=== PATIENT | female | born 1960 | race Caucasian/White ===

== ENCOUNTER 2020-09-02 11:21 | Outpatient (REF) | payer OTHER, SELFPAY ==
[2020-09-06 22:27] LABS: HPV mRNA E6/E7 rflx Not Detected (Not Detected)
== END 2020-09-02 11:22 | disposition home or self-care (01) ==
LOC: HO.LNP 11:21
PROVIDERS: Visit Provider Internal Medicine
DX: Z12.4 Encounter for screening for malignant neoplasm of cervix (principal); Z11.51 Encounter for screening for human papillomavirus (HPV)
CPT/HCPCS: 87624; 88142

== ENCOUNTER 2020-09-10 06:43 | Outpatient (REF) | payer OTHER, SELFPAY ==
[2020-09-10 11:08] LABS: MANUAL DIFF FLAG NO
[2020-09-10 11:12] LABS: Basophils Percent Auto 0.4 % (0-2); Eosinophils Percent Auto 0.4 % (0-4); Hematocrit 42.9 % (37-47); Hemoglobin 14.5 g/dl (12.0-16.0); Imm Gran Abs Auto 0.03 X10*3/uL (0.00-0.03); Imm Gran Pct Auto 0.4 % (0.0-0.4); Lymphocytes Absolute Auto 1.8 X10*3/uL (1.2-4.9); Lymphocytes Percent Auto 23.9 % (20-40); Mean Corpuscular HGB Conc 33.8 g/dl (31.0-35.0); Mean Corpuscular Hemoglobin 31.5 pg (27.0-33.0); Mean Corpuscular Volume 93.3 fL (80-98); Mean Platelet Volume 11.4 fL (9.4-12.3); Monocytes Absolute Auto 0.5 X10*3/uL (0.1-1.2); Monocytes Percent Auto 6.5 % (2-11); Neutrophils Absolute Auto 5.1 X10*3/uL (2.0-8.3); Neutrophils Percent Auto 68.4 % (45-73); Platelet Count 246 X10*3/uL (160-400); Red Cell Distribution Width 12.5 % (11.0-16.0); White Blood Count 7.5 X10*3/uL (4.8-10.8)
[2020-09-10 11:36] LABS: Alanine Aminotransferase 13 U/L (0-31); Anion Gap 15 (12-20); Aspartate Amino Transferase 16 U/L (5-31); Blood Urea Nitrogen 16 mg/dL (9-16); Calcium 9.3 mg/dL (8.4-10.2); Carbon Dioxide 24 mmol/L (22-29); Chloride 107 mmol/L (96-108); Cholesterol 185 mg/dL; Estimated Glomerular Filt Rate > 60; Glucose Fasting 90 mg/dL (60-99); HDL Cholesterol 38 mg/dL; LDL Cholesterol Calculated 123 mg/dl; Potassium 4.7 mmol/L (3.3-5.1); Sodium 141 mmol/L (135-145); Triglycerides 123 mg/dL
[2020-09-10 11:56] LABS: Vitamin D 25-OH Total 9.3 ng/mL (>30)
== END 2020-09-10 06:44 | disposition home or self-care (01) ==
LOC: HO.HMGCLDS 06:43
PROVIDERS: PCP Internal Medicine; Visit Provider Internal Medicine
DX: Z00.00 Encounter for general adult medical examination without abnormal findings (principal); E66.9 Obesity, unspecified; I10 Essential (primary) hypertension; Z78.0 Asymptomatic menopausal state
CPT/HCPCS: 36415; 80048; 80061; 82306; 84450; 84460; 85025

== ENCOUNTER 2020-10-27 07:18 | Outpatient (REF) | payer OTHER, SELFPAY ==
--- NOTE | ~2020-10-27 | MM_ITS ---
EXAMINATION: MM SCREENING DIGITAL BREAST TOMOSYNTHESIS, BILATERAL CLINICAL INFORMATION: Screening. Asymptomatic. The lifetime risk of breast cancer based on the Tyrer-Cuzick Model is 10%. COMPARISON: Mammography: 06/20/2017, 05/02/2009 (baseline) TECHNIQUE: Digital breast tomosynthesis is performed in both the craniocaudal and mediolateral oblique views along with computer-aided detection (CAD). Synthesized 2D images are generated from the tomosynthesis. FINDINGS: There are scattered areas of fibroglandular density (ACR BI-RADS breast composition Category b). There are no significant masses, abnormal calcifications, or other abnormalities. Parenchymal pattern is similar to prior studies. The axilla and skin contours are unremarkable. MM/MM tomosynthesis screening BI IMPRESSION: No mammographic evidence of malignancy. ASSESSMENT: BI-RADS 1: Negative RECOMMENDATION: Routine annual mammography screening. This patient's information was entered into a reminder system with a target due date for their next mammogram.
== END 2020-10-27 07:19 | disposition home or self-care (01) ==
LOC: HO.MAMMO 07:18
PROVIDERS: PCP Internal Medicine; Visit Provider Internal Medicine
DX: Z12.31 Encounter for screening mammogram for malignant neoplasm of breast (principal)
CPT/HCPCS: 77063; 77067

== ENCOUNTER 2021-09-04 09:49 | Outpatient (REF) | payer OTHER, SELFPAY ==
--- NOTE | ~2021-09-04 | XR_ITS ---
EXAMINATION: XR KNEE, RIGHT CLINICAL INFORMATION: Pain. COMPARISON: None TECHNIQUE: Four views of the right knee. FINDINGS: No acute fracture or subluxation. Mild to moderate tricompartmental degenerative osteoarthritis with joint space narrowing, subcortical sclerosis and osteophytes. No erosions or chondrocalcinosis. No joint effusion. XR/XR knee RT 3V IMPRESSION: No acute fracture or malalignment. Mild to moderate tricompartmental degenerative osteoarthritis.
--- NOTE | ~2021-09-04 | XR_ITS ---
EXAMINATION: XR HIP, RIGHT CLINICAL INFORMATION: Pain. COMPARISON: None TECHNIQUE: Two views of the right hip. FINDINGS: No acute fracture or subluxation. Severe degenerative changes of the right hip with preferential superolateral joint space narrowing, subcortical sclerosis and osteophytes. Degenerative bony productive changes are also identified in the anterosuperior iliac crest and greater trochanter. No discrete soft tissue abnormality. XR/XR hip RT min 2V IMPRESSION: No acute fracture or subluxation. Severe degenerative osteoarthritis of the right hip.
[2021-09-08 09:07] LABS: HPV mRNA E6/E7 rflx Not Detected (Not Detected)
== END 2021-09-04 09:50 | disposition home or self-care (01) ==
LOC: HO.HMGCX 09:49
PROVIDERS: PCP Internal Medicine; Visit Provider Internal Medicine
DX: Z12.4 Encounter for screening for malignant neoplasm of cervix (principal); Z11.51 Encounter for screening for human papillomavirus (HPV); M25.551 Pain in right hip; M25.561 Pain in right knee; G89.29 Other chronic pain
CPT/HCPCS: 73502; 73562; 87624; 88142

== ENCOUNTER 2021-10-14 06:37 | Outpatient (REF) | payer OTHER, SELFPAY ==
[2021-10-14 12:11] LABS: Alanine Aminotransferase 15 U/L (0-31); Anion Gap 13 (12-20); Aspartate Amino Transferase 16 U/L (5-31); Blood Urea Nitrogen 12 mg/dL (9-16); Calcium 9.1 mg/dL (8.4-10.2); Carbon Dioxide 27 mmol/L (22-29); Chloride 106 mmol/L (96-108); Cholesterol 175 mg/dL; Estimated Glomerular Filt Rate > 60; Glucose Fasting 103 mg/dL (60-99); HDL Cholesterol 35 mg/dL; LDL Cholesterol Calculated 113 mg/dl; Potassium 4.9 mmol/L (3.3-5.1); Sodium 141 mmol/L (135-145); Triglycerides 139 mg/dL
[2021-10-14 12:34] LABS: Vitamin D 25-OH Total 25.8 ng/mL (>30)
== END 2021-10-14 06:38 | disposition home or self-care (01) ==
LOC: HO.HMGCLDS 06:37
PROVIDERS: PCP Internal Medicine; Visit Provider Internal Medicine
DX: Z00.01 Encounter for general adult medical examination with abnormal findings (principal); E66.9 Obesity, unspecified; N95.9 Unspecified menopausal and perimenopausal disorder; E55.9 Vitamin D deficiency, unspecified
CPT/HCPCS: 36415; 80048; 80061; 82306; 84450; 84460

== ENCOUNTER 2021-10-28 07:31 | Outpatient (REF) | payer OTHER, SELFPAY ==
--- NOTE | ~2021-10-28 | MM_ITS ---
EXAMINATION: MM SCREENING DIGITAL BREAST TOMOSYNTHESIS, BILATERAL CLINICAL INFORMATION: Screening. Asymptomatic. The lifetime risk of breast cancer based on the Tyrer-Cuzick Model is 10%. COMPARISON: Mammography: 10/27/2020, 06/20/2017 TECHNIQUE: Digital breast tomosynthesis is performed in both the craniocaudal and mediolateral oblique views along with computer-aided detection (CAD). Synthesized 2D images are generated from the tomosynthesis. FINDINGS: There are scattered areas of fibroglandular density (ACR BI-RADS breast composition Category b). There are no significant masses, abnormal calcifications, or other abnormalities. Parenchymal pattern is similar to prior studies. There is no developing density or architectural abnormality. The axilla and skin contours are unremarkable. No significant changes. MM/MM tomosynthesis screening BI IMPRESSION: No mammographic evidence of malignancy. ASSESSMENT: BI-RADS 1: Negative RECOMMENDATION: Routine annual mammography screening. This patient's information was entered into a reminder system with a target due date for their next mammogram.
== END 2021-10-28 07:32 | disposition home or self-care (01) ==
LOC: HO.MAMMO 07:31
PROVIDERS: PCP Internal Medicine; Visit Provider Internal Medicine
DX: Z12.31 Encounter for screening mammogram for malignant neoplasm of breast (principal)
CPT/HCPCS: 77063; 77067

== ENCOUNTER 2021-11-28 | Outpatient (REF) | payer OTHER, SELFPAY | END 2021-11-28 00:01 | disposition home or self-care (01) | LOC: HO.HOSX | PROVIDERS: Visit Provider Physician Assistant | DX: Z13.89 Encounter for screening for other disorder (principal) ==

== ENCOUNTER 2021-12-29 07:23 | Outpatient (REF) | payer OTHER, SELFPAY ==
--- NOTE | ~2021-12-29 | XR_ITS ---
EXAMINATION: XR PELVIS CLINICAL INFORMATION: Pain in hip. COMPARISON: None TECHNIQUE: AP view of the pelvis. FINDINGS: There is moderate loss of right hip joint space with moderate lateral acetabular spurring. Mild loss of left hip joint space is seen. No acute fracture, bony erosive changes or dislocation seen. SI joints are symmetrical and unremarkable. The soft tissues are normal. XR/XR pelvis 1-2V IMPRESSION: Moderate degenerative changes right hip joint with moderate lateral acetabular spurring. No visible acute fracture or dislocation seen.
== END 2021-12-29 07:24 | disposition home or self-care (01) ==
LOC: HO.HOSX 07:23
PROVIDERS: Visit Provider Physician Assistant
DX: M25.551 Pain in right hip (principal)
CPT/HCPCS: 72170

== ENCOUNTER 2022-02-20 06:02 | Outpatient (REF) | payer OTHER, SELFPAY ==
--- NOTE | ~2022-02-20 | FL_ITS ---
EXAMINATION: XR FLUOROSCOPY WITH IMAGES CLINICAL INFORMATION: Unilateral primary osteoarthritis right hip COMPARISON: None. TECHNIQUE: Fluoroscopy Supervised By: Ramona Santos. Fluoroscopy Time: 0.1 minutes. Cumulative Dose: 5.90 mGy. DAP: 1.60 Gycm2. Images: 2. FINDINGS: There is contrast opacifying the right hip joint space without periarticular spurring or bony erosive changes. FL/FL guidance in treatment room IMPRESSION: Fluoroscopy guidance provided to the referrer for pain management
== END 2022-02-20 06:03 | disposition home or self-care (01) ==
LOC: CF 06:02
PROVIDERS: Visit Provider Anesthesiology
DX: M16.11 Unilateral primary osteoarthritis, right hip (principal); G89.29 Other chronic pain
CPT/HCPCS: 20610; 77002; J3301

== ENCOUNTER → 2022-03-12 08:17 | Outpatient (BNVA) | payer OTHER, SELFPAY | PROVIDERS: PCP Internal Medicine; Visit Provider Orthopaedic Surgery | DX: Z13.89 Encounter for screening for other disorder (principal) ==

== ENCOUNTER 2022-03-27 14:34 | Outpatient (REF) | payer OTHER, SELFPAY ==
[2022-03-27 17:01] LABS: Alanine Aminotransferase 13 U/L (0-31); Albumin Level 3.9 g/dL (3.5-5.0); Alkaline Phosphatase 81 U/L (39-117); Aspartate Amino Transferase 15 U/L (5-31); Bilirubin Direct < 0.2 mg/dL (0.0-0.5); Bilirubin Total 0.4 mg/dL (0.0-1.0); Total Protein 5.9 g/dL (6.5-8.0)
== END 2022-03-27 14:35 | disposition home or self-care (01) ==
LOC: HO.HMGCLDS 14:34
PROVIDERS: PCP Internal Medicine; Visit Provider Podiatrist
DX: B35.1 Tinea unguium (principal)
CPT/HCPCS: 36415; 80076

== ENCOUNTER 2022-04-05 07:00 | Outpatient (RCR) | payer OTHER, SELFPAY ==
--- NOTE | 2022-03-21 08:59 | MHC.PT.EP ---
[facility] [place] Office [place] Office [place] Office [address] Farrah Han [address] [phone] F: [phone] F: [phone] F: [phone] F: [phone] Physical Therapy Plan of Care Date of Evaluation: Date of Surgery: Diagnosis: OA of the R knee and R hip Assessment: Patient is a 62 year old R handed female who presents with s/s consistent with R knee and hip OA, pain. 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 Patient past medical history includes varicose veins and smoking. Current impairments include pain, posture, flexibility, ROM, strength, activity tolerance and functional mobility. Functional limitations include decreased ability to walk, stand, transfer, negotiate stairs and drive a fork lift. Patient is motivated with good rehab potential. Skilled PT will address impairments and functional limitations in order to achieve goals. Frequency and Duration: The patient will be seen 2x/week for 5 weeks Short Term Goals: I with HEP - 2 weeks AROM ER to 35 on R - 3 weeks Knee AAROM flexion and ext 0-130 pain free - 3 weeks Senior Care Goals: Able to walk, transfer, negotiate stairs, pain free - 5 weeks LEFS 64/80 - 5 weeks hip and knee strength 4/5 grossly - 5 weeks Treatment Plan: Modalities to reduce pain, spasms and effusion. Manual therapy to restore motion and function. Therapeutic exercise to improve strength and flexibility. Neuromuscular re-education for posture and balance. Therapeutic activities to return to functional activities of daily living. Electronically signed by: Yahir Oliveros, PT Please sign and return to therapist. Thank you for your referral.
--- NOTE | 2022-04-27 09:26 | MHC.PT.DC ---
[facility] [place] Office [place] Office [place] Office [address] Farrah Han [address] [phone] F: [phone] F: [phone] F: [phone] F: [phone] Physical Therapy Discharge Report Diagnosis: OA of the R knee and R hip Date of Surgery: Date of Evaluation: 03/21/22 Date of Discharge: 04/17/22 Treatments to Date: 4 Cancellations to Date: No Shows to Date: Discharge Status: Independent with HEP Discharge Summary: 04/05/22: pt has been feeling very stiff and tight after work. we discussed implementing HEP before and after work day for 15 minutes. issued updated HEP overall. 03/29/22: pt progressing slowly with knee pain related to knee flexion activities. we held on PB flexion, heel slides. Added standing hip work. no adverse reactions. 03/27/22: progressed with stretching. attempted knee flexion on PB instead of heel slides due to discomfort. assess response and progress as tolerated. Patient is a 62 year old R handed female who presents with s/s consistent with R knee and hip OA, pain. 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 Patient past medical history includes varicose veins and smoking. Current impairments include pain, posture, flexibility, ROM, strength, activity tolerance and functional mobility. Functional limitations include decreased ability to walk, stand, transfer, negotiate stairs and drive a fork lift. Patient is motivated with good rehab potential. Skilled PT will address impairments and functional limitations in order to achieve goals. Electronically signed by: Yahir Oliveros, PT Please sign and return to therapist. Thank you for your referral.
== END 2022-04-27 09:27 | disposition home or self-care (01) ==
LOC: HO.PTCHIC 07:00
PROVIDERS: PCP Internal Medicine; Visit Provider Orthopaedic Surgery
DX: M17.0 Bilateral primary osteoarthritis of knee (principal); M54.50 Low back pain, unspecified
CPT/HCPCS: 97110; 97162

== ENCOUNTER → 2022-06-11 08:15 | Outpatient (BNVA) | payer OTHER, SELFPAY | PROVIDERS: PCP Internal Medicine; Visit Provider Orthopaedic Surgery | DX: Z13.89 Encounter for screening for other disorder (principal) ==

== ENCOUNTER → 2022-06-26 07:44 | Outpatient (BNVA) | payer OTHER, SELFPAY | PROVIDERS: PCP Internal Medicine; Visit Provider Orthopaedic Surgery ==

== ENCOUNTER 2022-07-14 06:38 | Outpatient (REF) | payer OTHER, SELFPAY ==
[2022-07-14 10:54] LABS: Estimated Average Glucose 108 mg/dL; Hemoglobin A1c % 5.4 %
[2022-07-14 10:57] LABS: Glucose Fasting 98 mg/dL (60-99)
[2022-07-14 11:20] LABS: Vitamin D 25-OH Total 28.2 ng/mL (>30)
== END 2022-07-14 06:39 | disposition home or self-care (01) ==
LOC: HO.HMGCLDS 06:38
PROVIDERS: PCP Internal Medicine; Visit Provider Internal Medicine
DX: R73.01 Impaired fasting glucose (principal); E55.9 Vitamin D deficiency, unspecified
CPT/HCPCS: 36415; 82306; 82947; 83036

== ENCOUNTER → 2022-07-26 08:47 | Outpatient (BNVA) | payer OTHER, SELFPAY | PROVIDERS: PCP Internal Medicine; Visit Provider Physician Assistant ==

== ENCOUNTER 2022-07-31 06:02 | Inpatient (IN) | payer OTHER, SELFPAY ==
[2022-07-06 06:36] LABS: MANUAL DIFF FLAG NO
--- NOTE | 2022-07-06 06:37 | ECG_ITS ---
Test Reason : pre op Blood Pressure : / mmHG Vent. Rate : 075 BPM Atrial Rate : 075 BPM P-R Int : 160 ms QRS Dur : 080 ms QT Int : 394 ms P-R-T Axes : -16 -03 028 degrees QTc Int : 439 ms Poor data quality, interpretation may be adversely affected Normal sinus rhythm Cannot rule out Inferior infarct , age undetermined Abnormal ECG When compared with ECG of 21-JUL-2009 22:39, No significant change was found Referred By: Martha Carbone Electronically Signed By:Magen Duarte
[2022-07-06 07:30] LABS: Basophils Percent Auto 0.6 % (0-2); Eosinophils Absolute Auto 0.2 X10*3/uL (0.0-0.4); Eosinophils Percent Auto 2.5 % (0-4); Hematocrit 44.5 % (37.0-47.0); Hemoglobin 15.2 g/dl (12.0-16.0); Imm Gran Abs Auto 0.02 X10*3/uL (0.00-0.03); Imm Gran Pct Auto 0.3 % (0.0-0.4); Lymphocytes Absolute Auto 1.7 X10*3/uL (1.2-4.9); Lymphocytes Percent Auto 26.5 % (20-40); Mean Corpuscular HGB Conc 34.2 g/dl (31.0-35.0); Mean Corpuscular Hemoglobin 31.3 pg (27.0-33.0); Mean Corpuscular Volume 91.8 fL (80.0-98.0); Mean Platelet Volume 10.8 fL (9.4-12.3); Monocytes Absolute Auto 0.4 X10*3/uL (0.1-1.2); Monocytes Percent Auto 5.5 % (2-11); Neutrophils Absolute Auto 4.1 x10*3/uL (2.0-8.3); Neutrophils Percent Auto 64.6 % (45-73); Platelet Count 273 X10*3/uL (160-400); Red Blood Count 4.85 X10*6/uL (4.20-5.50); Red Cell Distribution Width 12.3 % (11.0-16.0); White Blood Count 6.4 X10*3/uL (4.8-10.8)
[2022-07-06 08:05] LABS: Blood Urea Nitrogen 13 mg/dL (9-16); Estimated Glomerular Filt Rate > 60
[2022-07-24 12:20] VITALS: BP 130/77; PULSE 66; RESP 18; O2SAT 95; BMI 38.4
--- NOTE | 2022-07-24 13:07 | HO.ANESPROP2 ---
Documented by User: Hazel Rodrigez NP 07/30/22 09:31 HPI - Anesthesia Eval Consult details Narrative: 62yo F for Right Hip Total Replacement Medically optimized PMFSH Active Problems Active Problems: All Active Problems (Updated 07/24/22 @ 12:16 by Shahnaz Mejia RN) Osteoarthritis of right knee (Acute) Morbid obesity with BMI of 40.0-44.9, adult (Acute) Osteoarthritis of right hip (Acute) Impaired fasting glucose (Acute) Right anterior knee pain (Acute) Vitamin D deficiency (Acute) Chronic right hip pain (Acute) Varicose veins of lower extremities without ulcer or inflammation (Acute) Past Medical History Medical History (Updated 12/08/22 @ 04:06 by Martha Carbone MD) Hidrocystoma of eyelid Anemia Back pain Arthritis Morbid obesity with BMI of 40.0-44.9, adult Impaired fasting glucose Osteoarthritis of right hip Right anterior knee pain Vitamin D deficiency Not ready to quit smoking Obesity (BMI 30-39.9) Chronic right hip pain Varicose veins of lower extremities without ulcer or inflammation History of cholelithiasis Family History Family History Father No problems noted. Mother Hip osteoarthritis Uterine cancer Brother No problems noted. Maternal Grandmother No problems noted. Maternal Grandfather No problems noted. Paternal Grandmother No problems noted. Maternal Grandfather No problems noted. Sister Hip osteoarthritis Family history of problems with anesthesia: No Surgical History Surgical History Hx laparoscopic cholecystectomy H/O: History of tubal ligation History of Problems with Anesthesia: No Social History Household Members: Spouse, Family and Children Housing: House Are you a primary career coordinator to a significant other at home: Yes Do you presently have visiting nurse or other home services: No Alcohol intake: never Patient Tobacco Use Status: Current everyday Tobacco user Tobacco use type: Cigarette Cigarette Packs Per Day: 0 Cigarettes Per Day: 10 Years Smoked: 40 e-Cigarette/Vaping Use: Never Used Second Hand Smoke Exposure: No service: No Current occupational status: employed 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 Cognitive needs: No Hearing needs: No Vision needs: Yes Narrative Narrative: No recent illness NO CP/SOB within limits of pain Meds Allergies Allergy/AdvReac Type Severity Reaction Status Date / Time No Known Allergies Allergy Verified 10/25/22 09:38 [No Known Allergies*] Home Medications Medication Instructions Recorded Confirmed Last Taken Type cholecalciferol (vitamin D3) 25 50 mcg PO DAILY 07/23/22 07/23/22 Unknown History mcg (1,000 unit) tablet (Vitamin D3) Exam Exam Date and Time: July 24, 2022 1307 Height,Weight and Vital Signs: Height 5 ft 7 in Weight 111.13 kg Last Vital Signs Pulse 66 07/24/22 12:20 Resp 18 07/24/22 12:20 BP 130/77 07/24/22 12:20 Pulse Ox 95 07/24/22 12:20 O2 Del Method Room Air 07/24/22 12:20 Pertinent Lab Results Pertinent Lab Results: Laboratory Tests 07/06/22 07/06/22 06:34 06:34 WBC 6.4 RBC 4.85 Hgb 15.2 Hct 44.5 MCV 91.8 MCH 31.3 MCHC 34.2 RDW 12.3 Plt Count 273 MPV 10.8 Immature Gran % (Auto) 0.3 Neut % (Auto) 64.6 Lymph % (Auto) 26.5 Appling % (Auto) 5.5 Eos % (Auto) 2.5 Baso % (Auto) 0.6 Lymph # (Auto) 1.7 Appling # (Auto) 0.4 Eos # (Auto) 0.2 Baso # (Auto) 0.0 Abs Immat Gran (auto) 0.02 Absolute Neuts (auto) 4.1 Absolute Nucleated RBC 0.000 Nucleated RBC % (auto) 0.0 BUN 13 Creatinine 0.91 Estim Creat Clear Calc TNP Estimated GFR > 60 Airway Mallampati Class: II TM Dist: >3cm Neck ROM: Full Partial: Upper Loose/Missing/Broken Teeth: Yes (Front lower perament bridge) Heart: RRR Lungs: CTAB Assessment and Plan Assessment Anesthesia Assessment: Anesthesia Plan Discussed, Smoking Cess. Discussed and PAT Visit Final Anesthetic Review Family History of Problems with Anesthesia: No History of Problems with Anesthesia: No Documented by User: Orestes Martinez MD 01/10/23 23:17 [facility] Past Medical History Medical History (Updated 12/08/22 @ 04:06 by Martha Carbone MD) Hidrocystoma of eyelid Anemia Back pain Arthritis Morbid obesity with BMI of 40.0-44.9, adult Impaired fasting glucose Osteoarthritis of right hip Right anterior knee pain Vitamin D deficiency Not ready to quit smoking Obesity (BMI 30-39.9) Chronic right hip pain Varicose veins of lower extremities without ulcer or inflammation History of cholelithiasis Functional capacity: independent ambulation Family History Family History Father No problems noted. Mother Hip osteoarthritis Uterine cancer Brother No problems noted. Maternal Grandmother No problems noted. Maternal Grandfather No problems noted. Paternal Grandmother No problems noted. Maternal Grandfather No problems noted. Sister Hip osteoarthritis Surgical History Surgical History Hx laparoscopic cholecystectomy H/O: History of tubal ligation Social History Household Members: Spouse, Family and Children Housing: House Are you a primary career coordinator to a significant other at home: Yes Do you presently have visiting nurse or other home services: No Alcohol intake: never Patient Tobacco Use Status: Current everyday Tobacco user Tobacco use type: Cigarette Cigarette Packs Per Day: 0 Cigarettes Per Day: 10 Years Smoked: 40 e-Cigarette/Vaping Use: Never Used Second Hand Smoke Exposure: No service: No Current occupational status: employed 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 Cognitive needs: No Hearing needs: No Vision needs: Yes Meds Allergies Allergy/AdvReac Type Severity Reaction Status Date / Time No Known Allergies Allergy Verified 10/25/22 09:38 [No Known Allergies*] Home Medications Medication Instructions Recorded Confirmed Last Taken Type cholecalciferol (vitamin D3) 25 50 mcg PO DAILY 07/23/22 07/23/22 Unknown History mcg (1,000 unit) tablet (Vitamin D3) Assessment and Plan Assessment Anesthesia Assessment: Chart Reviewed Final Anesthetic Review NPO: Yes ASA Class: III Final Preanesthetic Review: Meds/Allgs Chart Reviewed, Consent Obtained/Reviewed and Anes Risks/Benef Reviewed Patient Risk: Intermediate Procedure Risk: Intermediate Anesthetic Plan Anesthetic Plan: GA and Agree w/ Assess. and Plan Disposition: Standard PACU
[2022-07-24 15:22] LABS: Anion Gap 12 (12-20); Carbon Dioxide 26 mmol/L (22-29); Chloride 106 mmol/L (96-108); Potassium 4.6 mmol/L (3.3-5.1); Sodium 139 mmol/L (135-145)
[2022-07-24 15:25] LABS: MRSA Nasal PCR NEGATIVE (Negative); SA Nasal PCR POSITIVE (Negative)
[2022-07-31] VITALS (14 sets, daily range): BP systolic 107–138; BP diastolic 60–72; PULSE 72–84; RESP 12–20; TEMP 35.9–36.9; O2SAT 92–99
--- NOTE | ~2022-07-31 | XR_ITS ---
EXAMINATION: XR PELVIS CLINICAL INFORMATION: Right BLUE COMPARISON: AP pelvis 12/29/2021 TECHNIQUE: AP view of the pelvis. FINDINGS: There is interval total right hip replacement with prosthetic components in satisfactory alignment. There is mild loss of left hip joint space. Rest the visualized bones and the soft tissues are unremarkable. XR/XR pelvis 1-2V IMPRESSION: 1. Total right hip replacement with prosthetic components in satisfactory alignment. 2. Mild degenerative changes left hip joint.
--- OUTSIDE RECORDS SUMMARY | 2022-07-31 06:21 | XMS_ITS | Patient Health Record ---
Author Name [facility] Care Team Providers Care Cognos Architect Name Role Phone Eliud Lizette Lew [phone] ALLERGIES No Known Allergies ENCOUNTERS from 1960 to 2022-07-31 Encounter Location Date Provider Diagnosis [address] [address] May, Lizette [facility] [address] [place] [address] 07 Mar, 2022 Lizette Kline Tinea unguium B35.1 SOCIAL HISTORY Tobacco Use: Social History Observation Description Date Details (start date - stop date) Former Smoker Sex Assigned At : Social History Observation Description Sex Assigned At Unknown Alcohol Screen Question Answer Notes Did you have a drink containing alcohol in the p ast year? No Points 0 Interpretation Negative Tobacco Use/Smoking Question Answer Notes Additional Findings: Tobacco Non-User Current no n-smoker Are you a: former smoker Tobacco use other than smoking: Question Answer Notes Are you an other tobacco user? No REASON FOR REFERRAL No Information VITAL SIGNS from 1960 to 2022-07-31 Height 5 ft 8 in in Mar, Weight 250 lbs Mar, BMI 38.01 kg/m2 Mar, MEDICATIONS Medication SIG (Take, Route, Fr equency, Duration) Notes Start Date End Date Status LamISIL 250 MG 1 tablet Orally Once a day for 30 days Active REASON FOR VISIT No Information MEDICAL (GENERAL) HISTORY Type Description Date Medical History Arthritis Medical History Back,Hip,and Knee pain Medical History Measles Medical History Mumps Medical History Chicken pox Surgical History No Surgical history information MENTAL STATUS No Information ASSESSMENTS Encounter Date Diagnosis Assessment Notes Treatment Notes Treatment Clinical Notes Mar, Tinea unguium (ICD-10 - B35.1) PLAN OF TREATMENT Medication Medication Name Sig Start Date Stop Date LamISIL 250 MG 1 tablet Orally Once a day for 30 days Pending Tests Test Name Order Date *Liver Function Test (LFT) 2022-03-27 Insurance Providers Payer Name Payer Address Payer Phone Insured Name Patient Relationship to Insured Coverage Start Date Coverage End Date Subscriber Number Group Number [employer] [address] [place] [address] Michelle Knapp Self - patient is the insured [id number]
--- NOTE | 2022-07-31 06:31 | PHA.MEDREC ---
Pharmacy Consult ? Medication Reconciliation Pharmacy has completed the medication reconciliation. Reviewed med rec done by nursing
[2022-07-31] MEDS: oxyCODONE HCl ER 10 MG TAB.ER.12H PO ×2 (06:36→21:53)
[2022-07-31 06:38] LABS: Hematocrit 44.6 % (37.0-47.0); Hemoglobin 15.6 g/dl (12.0-16.0)
[2022-07-31] MEDS: Lactated Ringers 1,000 ML 100 ML IVCONT ×3 (06:55→21:56)
--- NOTE | 2022-07-31 07:36 | MHC.SHP ---
Pre-Procedural Eval Section A Date of Service: 07/31/22 The patient is an INPATIENT: No Changes since office visit: No Cold of Flu in the past 2 weeks, No New Medical Problems, No Changes in Medication and No Patient answered all questions The History & Physical has been completed within 30 days and I have reviewed it.: Yes Section B Chief Complaint: s/p RTHA Allergies: Allergies Allergy/AdvReac Type Severity Reaction Status Date / Time No Known Allergies Allergy Verified 07/31/22 06:17 [No Known Allergies*] Plan I have reviewed the history and physical and performed a pertinent physical examination on my patient. No changes have occurred unless specified. Time Spent With Patient Time: Total time managing care of this patient today ____ minutes.
--- NOTE | 2022-07-31 09:44 | PM.OP ---
Brief Operative Note Date of Service: 07/31/22 Pre-op diagnosis: Right hip OA Post-op diagnosis: same Procedure: Right hip OA Implants: [place] Trident 50 Dayron Accolade2 132 deg #6 with 36/+0 Ceramic femoral head Surgeon: Elie Castillo MD Anesthesia: GETA and local Was an Packaging Operator used for this Procedure?: Yes Packaging Operator: Renée Watkins Estimated blood loss (mL): 250 IV fluids (mL): 1,000 Pathology: other Condition: stable Disposition: PACU
[2022-07-31] MEDS: HYDROmorphone HCl 0.5 MG/0.5 ML SYRINGE 0.25 MG IVPUSH ×3 (10:12→18:57)
[2022-07-31] MEDS: ceFAZolin Sodium/Dextrose,Iso 2 GM/50 ML PIGGYBACK IV (13:56)
[2022-07-31] MEDS: 0.9 % Sodium Chloride Flush 3 ML SYRINGE IVFLUSH (14:08)
[2022-07-31] MEDS: ondansetron HCL 4 MG/2 ML VIAL IVPUSH (15:20)
--- NOTE | 2022-07-31 16:44 | PC.NURSE ---
Addendum entered by Kecia Tomas RN 07/31/22 17:52: Pt voided 250ML at 1700. Original Note: NABIL Watkins made aware pt unable to void at 1535 via tiger text, pt bladder scanned for 232ml. Pt was unable to get up with PT to bathroom as she felt to dizzy , VSS at this time, PA aware.
[2022-07-31] MEDS: Docusate Sodium 100 MG CAPSULE PO (21:52)
[2022-07-31] MEDS: Celecoxib 200 MG CAPSULE PO (21:52)
[2022-07-31] MEDS: Acetaminophen 325 MG TABLET 650 MG PO (21:53)
[2022-07-31] MEDS: oxyCODONE HCl Immed Release 5 MG TABLET PO (21:53)
[2022-08-01 03:20] VITALS: BP 109/58; PULSE 62; RESP 18; TEMP 36.6; O2SAT 97
[2022-08-01 05:51] LABS: MANUAL DIFF FLAG NO
[2022-08-01 06:21] LABS: Anion Gap 12 (12-20); Blood Urea Nitrogen 17 mg/dL (9-16); Calcium 8.7 mg/dL (8.4-10.2); Carbon Dioxide 25 mmol/L (22-29); Chloride 101 mmol/L (96-108); Creatinine Clr Calc Pharmacy 86.1; Estimated Glomerular Filt Rate > 60; Glucose Fasting 128 mg/dL (60-99); Potassium 5.1 mmol/L (3.3-5.1); Sodium 133 mmol/L (135-145)
[2022-08-01 06:33] LABS: Basophils Percent Auto 0.1 % (0-2); Eosinophils Percent Auto 0.1 % (0-4); Hemoglobin 12.6 g/dl (12.0-16.0); Imm Gran Abs Auto 0.08 X10*3/uL (0.00-0.03); Imm Gran Pct Auto 0.5 % (0.0-0.4); Lymphocytes Absolute Auto 0.9 X10*3/uL (1.2-4.9); Lymphocytes Percent Auto 5.7 % (20-40); Mean Corpuscular HGB Conc 34.1 g/dl (31.0-35.0); Mean Corpuscular Hemoglobin 31.3 pg (27.0-33.0); Mean Corpuscular Volume 91.8 fL (80.0-98.0); Mean Platelet Volume 10.6 fL (9.4-12.3); Monocytes Percent Auto 6.4 % (2-11); Neutrophils Absolute Auto 13.4 x10*3/uL (2.0-8.3); Neutrophils Percent Auto 87.2 % (45-73); Platelet Count 239 X10*3/uL (160-400); Red Blood Count 4.03 X10*6/uL (4.20-5.50); Red Cell Distribution Width 12.2 % (11.0-16.0); White Blood Count 15.4 X10*3/uL (4.8-10.8)
--- NOTE | 2022-08-01 07:09 | HO.POSTANES ---
Post Anesthesia Evaluation Post Anesthesia Evaluation Date of Service: 08/01/22 Vital Signs: Vital Signs Temp Pulse Resp BP Pulse Ox O2 Del Method 08/01/22 03:20 98 F 62 18 109/58 L 97 Room Air 07/31/22 23:25 97.2 F 80 18 111/63 98 Room Air 07/31/22 19:35 98.5 F 78 20 117/63 95 Room Air Anesthesia: General Mental Status: Awake Pain Control: Satisfactory Nausea/Vomiting: None Hydration: Adequate Anesthesia-Related Issues: No Anes. Related Issues
--- NOTE | 2022-08-01 07:16 | P.PNOP_ITS ---
Subjective Subjective Date of Service: 08/01/22 Interval history: POD1 s/p RTHA. No overnight events. Pain is managed. Resting in bed comfortably. Feeling nauseaus and had one bout of vomiting yesterday evening.No additional complaints. Physical Exam Vital Signs: Vital Signs: Last Vital Signs Temp 98 F 08/01/22 03:20 Pulse 62 08/01/22 03:20 Resp 18 08/01/22 03:20 BP 109/58 L 08/01/22 03:20 Pulse Ox 97 08/01/22 03:20 O2 Del Method Room Air 08/01/22 03:20 O2 Flow Rate 1.5 07/31/22 15:15 BMI result Body Mass Index 38.4 Const: General: cooperative, healthy appearing and no acute distress Resp: Effort & Inspection: normal respiratory effort and able to speak in complete sentences Cardio: Rate: regular rate Peripheral pulses: Peripheral pulses 2+ througho ut GI: Palpation (GI): Soft to palpation Skin: Lesions: no lesions Rashes: no rashes Extrem: Other: Right hip Aquacel is c/d/i. Able to dorsi/plantar flex. NVI. Procedures Date of Service Date of Service: 08/01/22 Progress Note: A&P Assessment and plan (1) Status post total hip replacement, right: Status: Acute Plan Continue pain mgmnt Begin Lovenox for dvt ppx begin PT for RTHA - WBAT Kaydena - D/C'ed janice, added phenergan Dispo planning-Pending PT eval, pain mgmnt Time Spent With Patient Time: Total time managing care of this patient today ____ minutes. Quality Stroke Does the patient have a stroke diagnosis?: No VTE Prior VTE?: No VTE Risk Level:: Medical - moderate - high VTE Device Contraindication: N/A - Device Ordered VTE Drug Contraindication: N/A - Med Ordered
[2022-08-01 07:17] VITALS: BP 102/56; PULSE 67; RESP 16; TEMP 36.1; O2SAT 100
[2022-08-01] MEDS: oxyCODONE HCl Immed Release 5 MG TABLET PO ×2 (08:07→14:37)
[2022-08-01] MEDS: Docusate Sodium 100 MG CAPSULE PO ×2 (08:07→20:20)
[2022-08-01] MEDS: Celecoxib 200 MG CAPSULE PO ×2 (08:07→20:20)
[2022-08-01] MEDS: oxyCODONE HCl ER 10 MG TAB.ER.12H PO ×2 (08:07→20:20)
[2022-08-01] MEDS: Rivaroxaban 10 MG TABLET PO (10:05)
--- NOTE | 2022-08-01 11:07 | MHC.CM.PN ---
pt lives with has own ride home referal to [facility] fo home pt
[2022-08-01 12:00] VITALS: BP 111/55; PULSE 75; RESP 16; TEMP 36.8; O2SAT 97
[2022-08-01] MEDS: Lactated Ringers 1,000 ML 100 ML IVCONT (14:38)
[2022-08-01 15:43] VITALS: BP 127/58; PULSE 72; RESP 18; TEMP 36; O2SAT 99
[2022-08-01] MEDS: HYDROmorphone HCl 0.5 MG/0.5 ML SYRINGE 0.25 MG IVPUSH ×2 (16:34→22:47)
[2022-08-01 19:41] VITALS: BP 122/58; PULSE 71; RESP 18; TEMP 36.9; O2SAT 97
[2022-08-02] MEDS: HYDROmorphone HCl 0.5 MG/0.5 ML SYRINGE 0.25 MG IVPUSH (03:18)
[2022-08-02 03:51] VITALS: BP 120/56; PULSE 78; RESP 18; TEMP 36.3; O2SAT 96
[2022-08-02 06:24] LABS: MANUAL DIFF FLAG NO
[2022-08-02 06:39] LABS: Basophils Percent Auto 0.2 % (0-2); Hematocrit 32.6 % (37.0-47.0); Hemoglobin 10.9 g/dl (12.0-16.0); Imm Gran Abs Auto 0.09 X10*3/uL (0.00-0.03); Imm Gran Pct Auto 0.9 % (0.0-0.4); Lymphocytes Absolute Auto 1.3 X10*3/uL (1.2-4.9); Lymphocytes Percent Auto 12.2 % (20-40); Mean Corpuscular HGB Conc 33.4 g/dl (31.0-35.0); Mean Corpuscular Hemoglobin 31.2 pg (27.0-33.0); Mean Corpuscular Volume 93.4 fL (80.0-98.0); Mean Platelet Volume 10.8 fL (9.4-12.3); Monocytes Absolute Auto 0.8 X10*3/uL (0.1-1.2); Monocytes Percent Auto 8.1 % (2-11); Neutrophils Absolute Auto 8.2 x10*3/uL (2.0-8.3); Neutrophils Percent Auto 78.6 % (45-73); Platelet Count 176 X10*3/uL (160-400); Red Blood Count 3.49 X10*6/uL (4.20-5.50); Red Cell Distribution Width 12.7 % (11.0-16.0); White Blood Count 10.4 X10*3/uL (4.8-10.8)
[2022-08-02 07:08] LABS: Anion Gap 11 (12-20); Blood Urea Nitrogen 18 mg/dL (9-16); Calcium 8.9 mg/dL (8.4-10.2); Carbon Dioxide 28 mmol/L (22-29); Chloride 104 mmol/L (96-108); Creatinine Clr Calc Pharmacy 101.2; Estimated Glomerular Filt Rate > 60; Glucose Fasting 111 mg/dL (60-99); Potassium 5.6 mmol/L (3.3-5.1); Sodium 137 mmol/L (135-145)
[2022-08-02 07:19] VITALS: BP 111/54; PULSE 78; RESP 17; TEMP 36.4; O2SAT 97
[2022-08-02] MEDS: oxyCODONE HCl Immed Release 5 MG TABLET PO (07:52)
[2022-08-02] MEDS: oxyCODONE HCl ER 10 MG TAB.ER.12H PO (07:52)
[2022-08-02] MEDS: Celecoxib 200 MG CAPSULE PO (07:52)
[2022-08-02] MEDS: Rivaroxaban 10 MG TABLET PO (07:52)
[2022-08-02] MEDS: Docusate Sodium 100 MG CAPSULE PO (07:52)
[2022-08-02] MEDS: 0.9 % Sodium Chloride Flush 3 ML SYRINGE IVFLUSH (07:53)
--- NOTE | 2022-08-02 10:17 | MHC.CM.PN ---
DP: PT HAS BEEN MEDICALLY CLEARED FOR DC HOME WITH [facility] FOR PHYSICAL THERAPY. PT HAS OWN RIDE HOME. [facility] NOTIFIED OF TODAY'S DC.
--- NOTE | 2022-08-02 10:50 | W.MHC.F2F ---
Service Date Service Date: 08/02/22 Encounter Date of encounter: 08/02/22 Reasons for Services Signs and symptoms assessed: Right hip pain, weakness, difficulty with balance Reason for physical therapy: home safety and mobility, therapeutic exercises, restore joint function, gait/transfer training, ADL training and energy conservation Reason for occupational therapy: home safety and mobility, therapeutic exercises, restore joint function, gait/transfer training, ADL training and energy conservation Homebound: Leaving the home is medically contraindicated at this time without the asist of a device and/or another person due th the listed conditions above and below. Reason homebound: unsteady gait / fall risk, pain with ambulation, poor balance / fall risk and unable to drive Homebound supporting statement: Pt. is considered home bound due to recent surgery. Unable to drive, poor balance, poor gait mechanics. Certification: Based on the above findings, I certify that this patient is confined to the home and needs intermittent shelter care, physical therapy and/or speech therapy, or continues to need occupational therapy. The patient is under my care, and I have initiated the establishment of the plan of care. The patient will be followed by a physician who will periodically review the plan of care. Time Spent With Patient Time: Total time managing care of this patient today ____ minutes.
--- NOTE | 2022-08-04 16:50 | W.PM.OPN ---
Operative Note Operative Note Date of Service: 07/31/22 Narrative: Date of Service: 07/31/22 Pre-op diagnosis: Right hip OA Post-op diagnosis: same Procedure: Right hip OA Implants: Dayron Trident 50 Cummings Accolade2 132 deg #6 with 36/+0 Ceramic femoral head Surgeon: Elie Castillo MD Anesthesia: GETA and local Was an Automotive Welder used for this Procedure?: Yes Automotive Welder: Renée Watkisn Estimated blood loss (mL): 250 IV fluids (mL): 1,000 Pathology: other Condition: stable Disposition: PACU Procedure in detail: Patient was brought into the operating room and placed in the right lateral decubitus position. All bony prominences were well padded and the limb was prepped and draped in standard sterile fashion. A time-out was called to identify proper site procedure proper surgeon IV antibiotics and 1 g of transaxemic acid were administered. I began by making a curvilinear incision over the posterolateral aspect of the greater trochanter. Dissection was taken down to the tensor fascia which was incised in line with the incision and a Charnley retractor was placed. Cautery was used to maintain hemostasis. The hip was internally rotated and the external rotators were identified. The vessels were cauterized and a full-thickness capsular/external rotator layer was developed starting just proximal to the piriformis. This layer was tagged and a dull Hohmann retractor was placed underneath the neck in the hip was dislocated. A neck cut was made 1 cm proximal to the lesser trochanter and the head and neck were removed and measured 46mm on the back table. I then removed the labrum and cauterized the fovea. I started with a 42 reamer and medialized to the inner table. I sequentially reamed up to a size 50 and impacted a 50mm cup at 45 degrees of inclination and 25 degrees of version. I then placed a neutral liner and turned my attention to the femur. I identified the piriformis insertion and used this as a starting point for my meredith cutter. The medius tendon was protected with a Hibs retractor. A Charnley awl was inserted in the canal and a curved curette used to remove the lateral bone. I irrigated copiously. I then sequentially broached in the patient's natural version to a size 6 and placed my trial implants. I used a #6/132/+0 based on my pre-operative template. Using a trail head I took the hip through range of motion. I was satisfied with the stability. I removed all instrumentation and copiously irrigated. I placed my final femoral implant and again took the hip through range of motion and was satisfied with the stability and length. The final 2.5 implant was impacted in place and the hip reduced. I then irrigated for 3 minutes with iodine and placed 1 g of local transaxemic acid. I performed a capsular closure with 2.0 fiberwire, Jose's fascia with 0 Vicryl, subcuticular with 2-0 Vicryl and the skin with jason. Patient was placed into a sterile dressing. Patient was extubated brought to the recovery room in stable condition. There were no known complications.
--- NOTE | 2022-08-10 16:20 | P.DS_ITS ---
DS: Providers Provider Date of Service: 08/10/22 Date of admission: 07/31/22 06:02 Primary care physician: Martha Carbone MD DS: Diagnosis Discharge Diagnosis (1) Status post total hip replacement, right: Status: Acute DS: Summary Hospital Course Hospital Course: The patient underwent a successful right total arthroplasty on 07/31/22, was transferred to PACU and then to the floor to recover. During their stay, their vitals were stable, afebrile at 97.6 . Labs were unremarkable, H/H 10.9/32.6. POD 1 he was started on Lovenox for DVT ppx, they also received Physical Therapy services twice a day. Physical therapy should include gait training, gait training and strength Prior to discharge, his dressing was changed, incision clean dry and intact, new Aquacel dressing applied. The Aquacel dressing should remain intact and dry at all times. Any concerns with the dressing, please contact orthopedic office. No showering. The plan is to be discharged home with vna Time Spent with Patient Time attestation: Total time managing care of this patient today ____ minutes. Discharge coordination time: Less than 30 minutes Quality: Safe Use of Opioids Does Pt have an Active Cancer Diagnosis on the Problem List?: No Quality: Stroke Does the patient have a stroke diagnosis?: No Physical Exam Vital Signs: Vital Signs: Last Vital Signs Temp 97.6 F 08/02/22 07:19 Pulse 78 08/02/22 07:19 Resp 17 08/02/22 07:19 BP 111/54 L 08/02/22 07:19 Pulse Ox 97 08/02/22 07:19 O2 Del Method Room Air 08/02/22 07:19 O2 Flow Rate 1.5 07/31/22 15:15 BMI result Body Mass Index 38.4 DS: Data Data Completed and Pending Completed studies during hospitalization [Text1]: Pending at discharge 07/31/22 09:27 Surgical [PTH] Routine Procedures Replacement of Right Hip Joint with Ceramic Synthetic Substitute, Cemented, Open Approach (07/31/22) Discharge Plan Discharge Anticipated Discharge Date/Time: 08/02/22 09:50 Patient Disposition: Home Health Service Discharge Diagnosis: RT BLUE Referrals: Raheel HUNTERA [Outside] - 1 Week (HOME SERVICES FOR PHYSICAL THERAPY- A THERAPIST WILL CALL YOU TO SET UP FIRST VISIT.) Danielle Vale PA-C [Physician Wick And Base Assembler] - 2 Weeks (08/16/22 2:[address] [facility] Orthopedic Surgeons Danielle Vale PA-C) Discharge Medications: New celecoxib 200 mg Capsule 200 mg PO BID 30 Days Qty: 60 0RF acetaminophen 325 mg Tablet 650 mg PO Q6H PRN (Reason: Pain, Mild (Pain Scale 1-3)) 30 Days Qty: 240 0RF docusate sodium 100 mg Capsule 100 mg PO BID 14 Days Qty: 28 0RF oxycodone 5 mg Tablet 5 mg PO Q4H PRN (Reason: Pain, Moderate(Pain Scale 4-6)) 7 Days Qty: 42 0RF Rx Instructions: Partial Fill upon patient request. Xarelto 10 mg Tablet 10 mg PO DAILY 42 Days Qty: 42 0RF Continued cholecalciferol (vitamin D3) [Vitamin D3] 25 mcg (1,000 unit) Tablet 50 mcg PO DAILY Discontinued acetaminophen 500 mg Tablet 1,000 mg PO Q6H PRN (Reason: Pain) No Action enoxaparin [Lovenox] 40 mg/0.4 mL syringe 40 mg subcut DAILY 42 Days Qty: 16.8 0RF Discharge Orders: Discharge Order (Routine); Ordered 08/02/22 Ordered By: Renée Watkins Diet: Regular diet Activity on Discharge: Use cane or walker Stand Alone Forms: Patient Portal Discharge page Care Plan Goals: Restore function of joint Health Concerns: none Plan of Treatment: Physical Therapy Pain management DVT prophylaxis Assessment: * Physical Therapy for Total hip arthroplasty: wbat, posterior precautions, gait training, ROM, strength * Limit stair climbing * No showering, no tub bath-keep dressing clean, dry and intact * No driving x6 weeks * Continuexarelto once a day x 6 weeks * Follow up with [facility] Orthopedics in 2 weeks: * --you will also have your first out patient PT dameon on the day of your post op appt-so please plan on being in the office that day for an extended period of time. Discharge Date/Time: 08/02/22 12:02
== END 2022-08-02 12:02 | disposition home health service (06) | DRG 470 ==
LOC: HO.SSSA 06:20 → HO.S3 09:56
PROVIDERS: Nurse Practitioner; Physician Assistant; Admitting Provider Orthopaedic Surgery; PCP Internal Medicine; Visit Provider Orthopaedic Surgery
PROC: 0SR9039 Replacement of Right Hip Joint with Ceramic Synthetic Substitute, Cemented, Open Approach (ICD-10-PCS; CPT 27130; principal; 2022-07-31 07:30)
DX: M16.11 Unilateral primary osteoarthritis, right hip (principal); Z87.891 Personal history of nicotine dependence; Z79.899 Other long term (current) drug therapy
CPT/HCPCS: 36415; 72170; 80048; 80051; 82565; 84520; 85014; 85018; 85025; 86850; 86900; 86901; 87640; 87641; 88305; 88311; 93005; 97110; 97116; 97161; 97165; 97535; C1713; C1776; J0131; J0690; J1100; J1170; J2250; J2405; J2795; J3010

== ENCOUNTER → 2022-08-16 14:11 | Outpatient (BNVA) | payer OTHER, SELFPAY | PROVIDERS: PCP Internal Medicine; Visit Provider Physician Assistant ==

== ENCOUNTER 2022-09-12 12:19 | Outpatient (AMB) | payer OTHER, SELFPAY ==
--- NOTE | 2022-09-12 12:45 | A.OFFPC_ITS ---
<Statement entered by Martha Carbone MD - 06/24/24 15:18> This note has been administratively?closed. Vital Signs 09/12/22 12:57 Height 5 ft 7 in Weight 245 lb BMI 38.4 BP 110/76 Blood Pressure Location Rt brachial Position Sitting Pulse 94 Pulse Source Pulse Oximeter Pulse Oximetry (%) 97 Oxygen Delivery Method Room Air Intake Visit Reasons: Physical exam Intake Note: Pt is here today for her Physical exam Allergies No Known Allergies [No Known Allergies*] Allergy (Verified 09/12/22 13:08) Medication List - Last Reconciled 09/12/22 by Martha Carbone MD cholecalciferol (vitamin D3) (Vitamin D3) 50 mcg PO DAILY Tobacco use date assessed: 09/12/22 Dental Screening Dental Screen Date: 09/12/22 Did you have a dental visit in the last 12 months?: Yes Did you have a dental problem in the last 6 months where you did not have access to dental care?: No Was dental information given to patient?: Patient has dentist HPI Physical exam HPI Details 62-year-old lady here today for physical exam. [facility] Medical History (Updated 09/12/22 @ 13:29 by Martha Carbone MD) Anemia Arthritis Back pain Chronic right hip pain History of cholelithiasis Impaired fasting glucose Morbid obesity with BMI of 40.0-44.9, adult Not ready to quit smoking Obesity (BMI 30-39.9) Osteoarthritis of right hip Right anterior knee pain Varicose veins of lower extremities without ulcer or inflammation Vitamin D deficiency Surgical History H/O: History of tubal ligation Hx laparoscopic cholecystectomy Family History Father No problems noted. Mother Hip osteoarthritis Uterine cancer Brother No problems noted. Maternal Grandmother No problems noted. Maternal Grandfather No problems noted. Paternal Grandmother No problems noted. Maternal Grandfather No problems noted. 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 1. Little interest or pleasure in doing things: not at all 2. Feeling down, depressed, or hopeless: not at all 3. Trouble falling or staying asleep, or sleeping too much: not at all 4. Feeling tired or having little energy: not at all 5. Poor appetite or overeating: not at all 6. Feeling bad about yourself - or that you are a failure or have let yourself or your family down: not at all 7. Trouble concentrating on things, such as reading the newspaper or watching television: not at all 8. Moving or speaking so slowly that other people could have noticed. Or the opposite - being so fidgety or restless that you have been moving around a lot more than usual: not at all 9. Thoughts that you would be better off or of hurting yourself in some way: not at all Total score: 0 Source: Developed by Drs. Eric Park, Elissa James, Misha Rich and colleagues, with an educational kristen from [employer]. Thrive Questionnaire Date Thrive assessed: 09/12/22 I am a: Patient What is your living situation today?: I have a steady place to live Within the past 12 months, did the food you bought not last and you didn't have the money to get more?: Never true Within the past 12 months, did you worry whether your food would run out before you got money to buy more?: Never true Do you have trouble paying for medicines?: No Do you have trouble getting transportation to medical appointments?: No Do you have trouble paying your heating and electricity bill?: No Do you have trouble taking care of your child, family member or friend?: No Do you have trouble with day-to-day activities such as bathing, preparing meals, shopping, managing finances, etc.?: No Are you currently unemployed and looking for a job?: No Are you interested in more education?: No AUDIT C Alcohol Use Questionnaire (AUDIT-C) 1. How often do you have a drink containing alcohol?: Never Total Score: 0 RONI-7 AMB Questionnaire RONI-7 Date RONI - 7 assessed: 09/12/22 Feeling nervous, anxious, or on edge: 0 = Not at all Not being able to stop or control worryin = Not at all Worrying too much about different things: 0 = Not at all Trouble relaxin = Not at all Being so restless that it is hard to sit still: 0 = Not at all Becoming easily annoyed or irritable: 0 = Not at all Feeling afraid as if something awful might happen: 0 = Not at all Total RONI-7 score (0-4 normal; 5-9 mild; 10-14 moderate; 15-21 severe): 0 Source: Developed by Drs. Eric Park, Elissa James, Misha Rich and colleagues, with an educational kristen from [employer]. Physical exam (Primary Care) Vital Signs: Last Vital Signs Pulse 94 09/12/22 12:57 BP 110/76 09/12/22 12:57 Pulse Ox 97 09/12/22 12:57 Oxygen Delivery Method Room Air 09/12/22 12:57 BMI result Body Mass Index 38.4 Tobacco/Smoking Status: Tobacco use Status Tobacco use date assessed 09/12/22 09/12/22 12:47 Patient Tobacco Use Status Current everyday Tobacco 09/12/22 13:00 Tobacco use type Cigarette 09/12/22 12:47 e-Cigarette/Vaping Use Never Used 09/12/22 12:47 PHQ-9: PHQ-9 Score PHQ-9: Total score 0 09/12/22 13:09 Thrive Assessment: Date of Thrive Assessment Date Thrive assessed 09/12/22 09/12/22 13:00 Results Reviewed Results Reviewed: SPEC : [id number] SUSY: 08/02/2236 STATUS: COMP REQ : [id number] RECD: 08/02/[address]: Renée Watkins PA-C COMP: 08/02/22 ENTERED: 08/02/[address]: Elie Castillo MD, Annabel C MD ORDERED: CBC Auto Diff Test Result Flag Reference Site WBC 10.4 4.8-10.8 X10*3/uL RBC 3.49 L 4.20-5.50 X10*6/uL HGB 10.9 L 12.0-16.0 g/dl HCT 32.6 L 37.0-47.0 % MCV 93.4 80.0-98.0 fL MCH 31.2 27.0-33.0 pg MCHC 33.4 31.0-35.0 g/dl RDW 12.7 11.0-16.0 % PLT 176 # 160-400 X10*3/uL MPV 10.8 9.4-12.3 fL Neut Pct Auto 78.6 H 45-73 % ImGran Pct Auto 0.9 H 0.0-0.4 % Lymp Pct Auto 12.2 L 20-40 % [place] Pct Auto 8.1 2-11 % Eos Pct Auto 0.0 0-4 % Baso Pct Auto 0.2 0-2 % NRBC Pct Auto 0.0 0.0-0.2 /100WBC ANC Neut Abs # 8.2 2.0-8.3 x10*3/uL ImGran Abs Auto 0.09 H 0.00-0.03 X10*3/uL Lymph Abs Auto 1.3 1.2-4.9 X10*3/uL [place] Abs Auto 0.8 0.1-1.2 X10*3/uL Eos Abs Auto 0.0 0.0-0.4 X10*3/uL Baso Abs Auto 0.0 0.0-0.2 X10*3/uL NRBC Abs Auto 0.000 0.0-0.012 X10*3/uL PEC : [id number] SUSY: 08/02/22 STATUS: COMP REQ : [id number] RECD: 08/02/22 [facility] [address]: Renée Watkins PA-C COMP: 08/02/2208 ENTERED: 08/02/[address]: Elie Castillo MD, Annabel C MD ORDERED: Met Prof Fast Test Result Flag Reference Site Sodium 137 135-145 mmol/L Potassium 5.6 H 3.3-5.1 mmol/L CL 104 96-108 mmol/L CO2 28 22-29 mmol/L Gap 11 L 12-20 BUN 18 H 9-16 mg/dL Creat 0.74 0.5-1.4 mg/dL Estimated CrCl 101.2 Provided height and weight: 170.18 cm, 111.13 kg. eGFR (calculated from the MDRD study equation) and eCrCl (calculated from the Cockcroft-Gault equation) are based on different parameters and may not yield comparable results. If eCrCl result is absurd, please check patient's height/weight. EGFR > 60 NOTE: For -Montserratian individuals, multiply the result by 1.210. Chronic Kidney Disease: Estimated GFR < 60 mL/min/1.73m2 Severe Kidney Disease: Estimated GFR < 15 mL/min/1.73m2 FBS 111 H 60-99 mg/dL A fasting glucose from 100-125 mg/dl is considered impaired (pre-diabetes). CA 8.9 8.4-10.2 mg/dL Assessment and Plan Assessment & Plan (1) Morbid obesity with BMI of 40.0-44.9, adult: Code(s): E66.01 - Morbid (severe) obesity due to excess calories; Z68.41 - Body mass index [BMI] 40.0-44.9, adult (2) Vitamin D deficiency: Code(s): E55.9 - Vitamin D deficiency, unspecified (3) Impaired fasting glucose: Code(s): R73.01 - Impaired fasting glucose (4) Hyperkalemia: Code(s): E87.5 - Hyperkalemia (5) Annual visit for general adult medical examination with abnormal findings: Code(s): Z00.01 - Encounter for general adult medical examination with abnormal findings (6) Anemia: Code(s): D64.9 - Anemia, unspecified (7) Status post total hip replacement, right: Code(s): Z96.641 - Presence of right artificial hip joint (8) Varicose veins of lower extremities without ulcer or inflammation: Code(s): I83.90 - Asymptomatic varicose veins of unspecified lower extremity Coding Level of Care Code Est Pt Prev Care 40-64y(00524) Diagnoses Morbid obesity with BMI of 40.0-44.9, adult E66.01; Z68.41 Vitamin D deficiency E55.9 Impaired fasting glucose R73.01 Hyperkalemia E87.5 Annual visit for general adult medical examination with abnormal findings Z00.01 Anemia D64.9 Status post total hip replacement, right Z96.641 Varicose veins of lower extremities without ulcer or inflammation I83.90
[2022-09-12 12:57] VITALS: BP 110/76; PULSE 94; O2SAT 97; BMI 38.4
== END 2022-09-12 13:31 | disposition home or self-care (01) ==
PROVIDERS: Visit Provider Internal Medicine
DX: E66.01 Morbid (severe) obesity due to excess calories (principal); Z68.41 Body mass index [BMI] 40.0-44.9, adult; E55.9 Vitamin D deficiency, unspecified; R73.01 Impaired fasting glucose; E87.5 Hyperkalemia; Z00.01 Encounter for general adult medical examination with abnormal findings; D64.9 Anemia, unspecified; Z96.641 Presence of right artificial hip joint; I83.90 Asymptomatic varicose veins of unspecified lower extremity
CPT/HCPCS: 99499

== ENCOUNTER 2022-09-13 12:33 | Outpatient (AMB) | payer OTHER, SELFPAY ==
--- NOTE | 2022-09-13 12:49 | A.OFFVIS_ITS ---
Intake Intake Visit Reasons: PO RT BLUE 07/31/22 NE Intake Note: Tyesha is a 62 year old female who presents today for a follow up of her right hip s/p Right BLUE 07/31/22. Patient reports that she is doing well, she still has some increased pain particularly when standing from a seated position. Allergies No Known Allergies [No Known Allergies*] Allergy (Verified 09/13/22 12:51) HPI PO RT BLUE 07/31/22 NE HPI Details Tyesha is a 62 year old woman ~6 weeks S/P right BLUE. She says she is doing well and has been working with PT. She complains of having some mild groin pain and discomfort with gait initiation, but she is able to walk comfortably [facility] Medical History (Updated 09/12/22 @ 13:29 by Martha Carbone MD) Anemia Arthritis Back pain Chronic right hip pain History of cholelithiasis Impaired fasting glucose Morbid obesity with BMI of 40.0-44.9, adult Not ready to quit smoking Obesity (BMI 30-39.9) Osteoarthritis of right hip Right anterior knee pain Varicose veins of lower extremities without ulcer or inflammation Vitamin D deficiency Surgical History H/O: History of tubal ligation Hx laparoscopic cholecystectomy Family History Father No problems noted. Mother Hip osteoarthritis Uterine cancer Brother No problems noted. Maternal Grandmother No problems noted. Maternal Grandfather No problems noted. Paternal Grandmother No problems noted. Maternal Grandfather No problems noted. 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 Right total hip arthroplasty in expected post operative position with no hardware complications or evidence of loosening Assessment & Plan Assessment & Plan (1) Status post total hip replacement, right: Code(s): Z96.641 - Presence of right artificial hip joint Plan: This is a 62 year old woman S/P right BLUE, DOS: 07/31/22. She is doing well, with some mild groin pain with activity, particularly with gait initiation. She has been working with PT. I recommend she continue with PT and at-home strengthening exercises. She will follow up in 6 weeks. Plan Scribed for Elie Castillo MD by Leif Harding medical diagnostic radiographer, on 09/13/22 at 1: 10 PM, EST. Coding Level of Care Code Global (63239) Diagnoses Status post total hip replacement, right Z96.641
== END 2022-09-13 13:02 | disposition home or self-care (01) ==
PROVIDERS: PCP Internal Medicine; Visit Provider Orthopaedic Surgery
DX: Z96.641 Presence of right artificial hip joint (principal)
CPT/HCPCS: 99024

== ENCOUNTER → 2022-09-13 12:33 | Outpatient (BNVA) | payer OTHER, SELFPAY | PROVIDERS: PCP Internal Medicine; Visit Provider Orthopaedic Surgery ==

== ENCOUNTER 2022-09-17 10:00 | Outpatient (RCR) | payer OTHER, SELFPAY ==
--- NOTE | 2022-08-20 11:04 | MHC.PT.EP ---
[facility] [place] [facility] [place] [facility] [place] [facility] [address] Farrah Han [address] [phone] F: [phone] F: [phone] F: [phone] F: [phone] Physical Therapy Plan of Care Date of Evaluation: Date of Surgery: 07/31/22 Diagnosis: This is a 62 yo female presenting to skilled PT with a script for Rt BLUE Assessment: This is a 62 yo female presenting to skilled PT with a script for Rt BLUE. Patient underwent BLUE via [facility] ortho on 07/31/22. Prior to surgery, patient had been dealing with pain for a few years at the knee and hip on the R. She came to our clinic for prehab and had a cortisone injection at her R hip prior as well. After surgery patient was in the hospital for 2 days and then she was dc'd home. Since then she has been working with [facility] at home 3-4 times. [place] were removed and steri-stripes applied at her follow up on 08/16/22. She denies pain but has an occasional groin pull and burning at incision. Assessment reveals pain that ranges from 0-1/10. Patient demos decreased LE ROM, strength expected s/p BLUE. She has very little pain but occasionally has incisional area and surrounding areas that have a burning sensation or groin tugging. She reports a general tightness of the LE. She is limited in ambulation, stairs and transfers as well as normal ADL routine, work routine and driving. Based on functional limitations, impaired QOL and pain tolerance patient is a good candidate for skilled PT 2x/wk for 5 wks. Frequency and Duration: The patient will be seen 2x/wk for 5wks Short Term Goals: (in 2wks) I in HEP Demo proper understanding of transfers; sit<>stand, supine<>sit without cues Understand her precautions, safety and demo without cues from PT Halfway Goals: (in 5wks) Return to normal gait pattern without AD Demo stair negotiation with reciprical gait Improve hip MMT by at least 1 grade without breaking hip precautions Return to work in full once cleared by surgeon Improve pain to no more than a 2/10 at the worst Treatment Plan: Modalities to reduce pain, spasms and effusion. Manual therapy to restore motion and function. Therapeutic exercise to improve strength and flexibility. Neuromuscular re-education for posture and balance. Therapeutic activities to return to functional activities of daily living. Electronically signed by: Gayathri Garza PT Please sign and return to therapist. Thank you for your referral.
--- NOTE | 2022-10-17 10:47 | MHC.PT.DC ---
[facility] [place] Office [place] [facility] [place] [facility] [address] Farrah Han [address] [phone] F: [phone] F: [phone] F: [phone] F: [phone] Physical Therapy Discharge Report Diagnosis: This is a 62 yo female presenting to skilled PT with a script for Rt BLUE Date of Surgery: 07/31/22 Date of Evaluation: 08/20/22 Date of Discharge: 10/17/22 Treatments to Date: 5 Cancellations to Date: 0 No Shows to Date: 0 Discharge Status: Achieved Goals Improved Function Independent with HEP Patient Elected to Stop Discharge Summary: 09/17: Patient arrives reporting that she has been well. She no longer uses her cane. She sees the ortho again before going back to work and she reports that she is concerned that she may twist the wrong way at work, I educated her to bring her concerns to him at the next appointment. She feels like she can continue her exercises at home by herself. I educated her that I will keep her chart open for 30 days in case she wishes to return. Patient's chart was DC'd after 1 month. Electronically signed by: Gayathri Garza PT Please sign and return to therapist. Thank you for your referral.
== END 2022-10-17 10:48 | disposition home or self-care (01) ==
LOC: HO.PTCHIC 10:00
PROVIDERS: PCP Internal Medicine; Visit Provider Physician Assistant
DX: Z96.641 Presence of right artificial hip joint (principal)
CPT/HCPCS: 97110; 97161; 97162; 97530

== ENCOUNTER 2022-09-26 07:08 | Outpatient (REF) | payer OTHER, SELFPAY ==
[2022-09-26 11:32] LABS: MANUAL DIFF FLAG NO
[2022-09-26 11:44] LABS: Basophils Percent Auto 0.6 % (0-2); Eosinophils Absolute Auto 0.1 X10*3/uL (0.0-0.4); Eosinophils Percent Auto 1.7 % (0-4); Hematocrit 45.7 % (37.0-47.0); Imm Gran Abs Auto 0.02 X10*3/uL (0.00-0.03); Imm Gran Pct Auto 0.4 % (0.0-0.4); Lymphocytes Absolute Auto 1.4 X10*3/uL (1.2-4.9); Lymphocytes Percent Auto 27.6 % (20-40); Mean Corpuscular HGB Conc 32.8 g/dl (31.0-35.0); Mean Corpuscular Hemoglobin 30.6 pg (27.0-33.0); Mean Corpuscular Volume 93.3 fL (80.0-98.0); Mean Platelet Volume 10.9 fL (9.4-12.3); Monocytes Absolute Auto 0.4 X10*3/uL (0.1-1.2); Monocytes Percent Auto 6.9 % (2-11); Neutrophils Absolute Auto 3.3 x10*3/uL (2.0-8.3); Neutrophils Percent Auto 62.8 % (45-73); Platelet Count 283 X10*3/uL (160-400); Red Cell Distribution Width 13.2 % (11.0-16.0); White Blood Count 5.2 X10*3/uL (4.8-10.8)
[2022-09-26 11:58] LABS: Estimated Average Glucose 97 mg/dL
[2022-09-26 12:29] LABS: Cholesterol 220 mg/dL; Glucose Fasting 106 mg/dL (60-99); HDL Cholesterol 39 mg/dL; Iron 71 mcg/dL (30-160); LDL Cholesterol Calculated 146 mg/dl; Percent Iron Saturation 25 % (15-50); Potassium 4.7 mmol/L (3.3-5.1); Total Iron Binding Capacity 280 mcg/dL (228-428); Triglycerides 179 mg/dL; Unsaturated Iron Binding 209 ug/dL; Vitamin D 25-OH Total 33.6 ng/mL (>30)
== END 2022-09-26 07:09 | disposition home or self-care (01) ==
LOC: HO.HMGCLDS 07:08
PROVIDERS: PCP Internal Medicine; Visit Provider Internal Medicine
DX: Z00.01 Encounter for general adult medical examination with abnormal findings (principal); D64.9 Anemia, unspecified; E87.5 Hyperkalemia; E66.01 Morbid (severe) obesity due to excess calories; E55.9 Vitamin D deficiency, unspecified; R73.01 Impaired fasting glucose; Z13.220 Encounter for screening for lipoid disorders; Z68.41 Body mass index [BMI] 40.0-44.9, adult
CPT/HCPCS: 36415; 80061; 82306; 82947; 83036; 83540; 84132; 85025

== ENCOUNTER 2022-10-25 07:36 | Outpatient (REF) | payer OTHER, SELFPAY ==
--- NOTE | ~2022-10-25 | XR_ITS ---
X-RAY PELVIS X-RAY RIGHT HIP CLINICAL HISTORY: Pain. COMPARISON: Radiograph of the pelvis 07/31/2022. TECHNIQUE: AP view of the pelvis and table lateral view of the right hip. FINDINGS: Total right-sided hip arthroplasty without evidence of hardware fracture or failure in the frontal view; unfortunately the table lateral view is significantly limited due to overlying soft tissues and under exposure. No acute fractures or subluxation. Moderate joint space narrowing and subcortical sclerosis in the left hip. SI joints are symmetric. Pubic symphysis is maintained. No osseous erosions or abnormal soft tissue calcifications. XR/XR pelvis 1-2V IMPRESSION: No acute fractures, subluxation or hardware failure accounting for limitations of a suboptimal table lateral view of the right hip. A repeat radiograph could be obtained if clinically deemed appropriate.
--- NOTE | ~2022-10-25 | XR_ITS ---
X-RAY PELVIS X-RAY RIGHT HIP CLINICAL HISTORY: Pain. COMPARISON: Radiograph of the pelvis 07/31/2022. TECHNIQUE: AP view of the pelvis and table lateral view of the right hip. FINDINGS: Total right-sided hip arthroplasty without evidence of hardware fracture or failure in the frontal view; unfortunately the table lateral view is significantly limited due to overlying soft tissues and under exposure. No acute fractures or subluxation. Moderate joint space narrowing and subcortical sclerosis in the left hip. SI joints are symmetric. Pubic symphysis is maintained. No osseous erosions or abnormal soft tissue calcifications. XR/XR hip RT 1V IMPRESSION: No acute fractures, subluxation or hardware failure accounting for limitations of a suboptimal table lateral view of the right hip. A repeat radiograph could be obtained if clinically deemed appropriate.
== END 2022-10-25 07:37 | disposition home or self-care (01) ==
LOC: HO.HOSX 07:36
PROVIDERS: Visit Provider Orthopaedic Surgery
DX: M25.551 Pain in right hip (principal); Z96.641 Presence of right artificial hip joint
CPT/HCPCS: 72170; 73501

== ENCOUNTER 2022-10-25 09:33 | Outpatient (AMB) | payer OTHER, SELFPAY ==
--- NOTE | 2022-10-25 09:36 | A.OFFVIS_ITS ---
Intake Intake Visit Reasons: PO-RT BLUE 07/31/22 NE-F/U Intake Note: Tyesha is a 62 year old female who presents today for a follow up of her right hip s/p Right BLUE 07/31/22. She is doing well, with some mild groin pain with activity, particularly with gait initiation. She has continued to work on a home exercise program. Allergies No Known Allergies [No Known Allergies*] Allergy (Verified 10/25/22 09:38) HPI PO-RT BLUE 07/31/22 NE-F/U HPI Details Tyesha is a 62 year old woman ~3 months S/P right BLUE. She says she is doing well and has been working with PT. She continues to have some mild groin pain and discomfort primarily with gait initiation, but she is able to walk comfortably PFSH Medical History Anemia Back pain Arthritis Morbid obesity with BMI of 40.0-44.9, adult Impaired fasting glucose Osteoarthritis of right hip Right anterior knee pain Vitamin D deficiency Not ready to quit smoking Obesity (BMI 30-39.9) Chronic right hip pain Varicose veins of lower extremities without ulcer or inflammation History of cholelithiasis Surgical History Hx laparoscopic cholecystectomy H/O: History of tubal ligation Family History Father No problems noted. Mother Hip osteoarthritis Uterine cancer Brother No problems noted. Maternal Grandmother No problems noted. Maternal Grandfather No problems noted. Paternal Grandmother No problems noted. Maternal Grandfather No problems noted. 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 Cognitive needs: No Hearing needs: No Vision needs: Yes Review of Systems Const All systems reviewed & are unremarkable except as noted in HPI and below Physical Exam Const General: no acute distress and alert Orientation/consciousness: patient oriented x3 HEENT Head: Yes normocephalic and Yes atraumatic Eyes EOM: EOMs intact bilaterally Resp Effort & Inspection: normal respiratory effort and able to speak in complete sentences Cardio Jugular venous distension: no JVD Skin General skin exam: turgor normal Rashes: no rashes Neuro General: patient oriented x3 Extrem Other: Right Hip: Well-healed incision Full ROM Walking well Psych Appearance: grossly normal Affect: normal affect Attitude: cooperative Assessment & Plan Assessment & Plan (1) Status post total hip replacement, right: Code(s): Z96.641 - Presence of right artificial hip joint Plan: This is a 62 year old woman S/P right BLUE, DOS: 07/31/22. She is doing well, continues to have some mild groin pain with activity, particularly with gait initiation. She has been working with PT and exercising at home. I recommend she continue with PT and at-home strengthening exercises. She was given a note to return to work on 10/31/22 without restrictions. She can follow up in 9 months. Discussed dental prophylaxis. Plan Scribed for Elie Castillo MD by Leif Harding, medical certification specialist, on 10/25/22 at 10:00 AM, EST. Orders: Orders XR pelvis 1-2V 10/25/22 M25.559 - Pain in unspecified hip XR hip RT 1V 10/25/22 M25.559 - Pain in unspecified hip Coding Level of Care Code Global (87343) Diagnoses Status post total hip replacement, right Z96.641
== END 2022-10-25 10:17 | disposition home or self-care (01) ==
PROVIDERS: PCP Internal Medicine; Visit Provider Orthopaedic Surgery
DX: Z96.641 Presence of right artificial hip joint (principal)
CPT/HCPCS: 99024

== ENCOUNTER 2023-07-26 08:44 | Outpatient (REF) | payer OTHER, SELFPAY ==
--- NOTE | ~2023-07-26 | XR_ITS ---
EXAMINATION: XR PELVIS CLINICAL INFORMATION: Hip pain COMPARISON: 10/25/2022 hip radiographs TECHNIQUE: AP view of the pelvis. FINDINGS: No acute fracture or dislocation. Status post right total hip arthroplasty. No evidence of hardware fracture or complication. Multilevel degenerative disc disease in the visualized lumbosacral spine. Moderate osteophytosis of the left hip with possible superior lateral joint space. Mild osteoarthritis of the sacroiliac joints. Soft tissues are unremarkable. XR/XR pelvis 1-2V IMPRESSION: 1. Status post right total hip arthroplasty. No evidence of hardware fracture or complication. 2. Moderate degenerative changes of the left hip similar to prior. 3. Multilevel degenerative disc disease in the visualized lumbosacral spine.
== END 2023-07-26 08:45 | disposition home or self-care (01) ==
LOC: HO.HOSX 08:44
PROVIDERS: Visit Provider Orthopaedic Surgery
DX: M25.559 Pain in unspecified hip (principal)
CPT/HCPCS: 72170

== ENCOUNTER 2023-07-26 09:17 | Outpatient (AMB) | payer OTHER, SELFPAY ==
--- NOTE | 2023-07-26 09:21 | A.OFFVIS_ITS ---
Intake Visit Reasons: OV-RT BLUE 07/31/22 NE-F/U Intake Note: Tyesha is a 62 year old female who presents today for a follow up of her right hip s/p Right BLUE 07/31/22. She is doing well and feels back to normal. She denies any concerns at this time. Allergies No Known Allergies [No Known Allergies*] Allergy (Verified 07/26/23 09:21) HPI HPI OV-RT BLUE 07/31/22 NE-F/U: Details: Tyesha is a 62 year old female who presents today for a follow up of her right hip s/p Right BLUE 07/31/22. She is doing well and feels back to normal. She denies any concerns at this time. [facility] Medical History (Updated 12/08/22 @ 04:06 by Martha Carbone MD) Hidrocystoma of eyelid Anemia Back pain Arthritis Morbid obesity with BMI of 40.0-44.9, adult Impaired fasting glucose Osteoarthritis of right hip Right anterior knee pain Vitamin D deficiency Not ready to quit smoking Obesity (BMI 30-39.9) Chronic right hip pain Varicose veins of lower extremities without ulcer or inflammation History of cholelithiasis Surgical History Hx laparoscopic cholecystectomy H/O: History of tubal ligation Family History Father No problems noted. Mother Hip osteoarthritis Uterine cancer Brother No problems noted. Maternal Grandmother No problems noted. Maternal Grandfather No problems noted. Paternal Grandmother No problems noted. Maternal Grandfather No problems noted. Sister Hip osteoarthritis Social History (Reviewed 10/25/22 @ 09:38 by Danica Moran [facility]) Household Members: Spouse, Family and Children Housing: House Are you a primary residential caregiver to a significant other at home: Yes Do you presently have visiting nurse or other home services: No Alcohol intake: never Patient Tobacco Use Status: Current everyday Tobacco user Tobacco use type: Cigarette Cigarette Packs Per Day: 0 Cigarettes Per Day: 10 Years Smoked: 40 e-Cigarette/Vaping Use: Never Used Second Hand Smoke Exposure: No service: No Current occupational status: employed 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 Right BLUE in expected post operative position with no hardware complications or evidence of loosening Assessment & Plan Assessment & Plan (1) Status post total hip replacement, right: Code(s): Z96.641 - Presence of right artificial hip joint Category: Surgical Plan: Patient is doing well No concerns at this time. May follow up in ~ 2 years. Orders: Orders XR pelvis 1-2V Today M25.559 - Pain in unspecified hip Coding Level of Care Code Est Pt Level 3 (84917) Diagnoses Status post total hip replacement, right Z96.641
== END 2023-07-26 10:05 | disposition home or self-care (01) ==
PROVIDERS: PCP Internal Medicine; Visit Provider Orthopaedic Surgery
DX: Z47.89 Encounter for other orthopedic aftercare (principal); Z96.641 Presence of right artificial hip joint
CPT/HCPCS: 99213

== ENCOUNTER 2023-09-17 08:08 | Outpatient (AMB) | payer OTHER, SELFPAY ==
--- NOTE | 2023-09-17 08:27 | A.OFFPC_ITS ---
Vital Signs 09/17/23 08:36 Height 5 ft 6 in Weight 236 lb BMI 38.1 BP 122/72 Blood Pressure Location Lt brachial Position Sitting Pulse 75 Pulse Source Pulse Oximeter Pulse Oximetry (%) 97 Oxygen Delivery Method Room Air Intake Visit Reasons: PE Intake Note: Pt is here today for her PE: last mammogram 10/28/21, papsmear 09/05/21, colorguard 10/15/22 Allergies No Known Allergies [No Known Allergies*] Allergy (Verified 09/17/23 08:48) Medication List - Last Reconciled 09/17/23 by Martha Carbone MD cholecalciferol (vitamin D3) (Vitamin D3) 50 mcg PO DAILY Tobacco use date assessed: 09/17/23 Dental Screening Dental Screen Date: 09/17/23 Did you have a dental visit in the last 12 months?: Yes Did you have a dental problem in the last 6 months where you did not have access to dental care?: No Was dental information given to patient?: Patient has dentist HPI PE HPI Details 63-year-old lady with history of osteoar thritis, status post right hip replacement, has prediabetes, morbid obesity, and history of anemia, here today for physical exam. She is due for her screening mammogram, last done in 2021, up-to-date with her cervical cancer screening done in 2021 with normal fin dings, and is up-to-date with her colon cancer screening, had a Cologuard test done in 2022 which came back with negative findings. 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, complains of swelling in left lower extremity more than the right towards the end of her workday [facility] Medical History (Updated 09/17/23 @ 09:13 by Martha Carbone MD) Smoker unmotivated to quit Strain of cervical portion of right trapezius muscle Varicose veins of left lower extremity with inflammation Mixed dyslipidemia Hidrocystoma of eyelid Anemia Back pain Arthritis Morbid obesity with BMI of 40.0-44.9, adult Impaired fasting glucose Osteoarthritis of right hip Right anterior knee pain Vitamin D deficiency Not ready to quit smoking Obesity (BMI 30-39.9) Chronic right hip pain Varicose veins of lower extremities without ulcer or inflammation History of cholelithiasis Surgical History Hx laparoscopic cholecystectomy H/O: History of tubal ligation Family History Father No problems noted. Mother Hip osteoarthritis Uterine cancer Brother No problems noted. Maternal Grandmother No problems noted. Maternal Grandfather No problems noted. Paternal Grandmother No problems noted. Maternal Grandfather No problems noted. 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 1. Little interest or pleasure in doing things: not at all 2. Feeling down, depressed, or hopeless: not at all 3. Trouble falling or staying asleep, or sleeping too much: not at all 4. Feeling tired or having little energy: not at all 5. Poor appetite or overeating: not at all 6. Feeling bad about yourself - or that you are a failure or have let yourself or your family down: not at all 7. Trouble concentrating on things, such as reading the newspaper or watching television: not at all 8. Moving or speaking so slowly that other people could have noticed. Or the opposite - being so fidgety or restless that you have been moving around a lot more than usual: not at all 9. Thoughts that you would be better off or of hurting yourself in some way: not at all Total score: 0 Depression Screening Interpretation: Negative Depression Screening Done: Yes 48165 - PHQ-9 Billing: Yes Source: Developed by Drs. Eric Park, Elissa James, Misha Rich and colleagues, with an educational kristen from [employer]. Thrive Questionnaire Date Thrive assessed: 09/17/23 I am a: Patient What is your living situation today?: I have a steady place to live Within the past 12 months, did the food you bought not last and you didn't have the money to get more?: I choose not to answer this question Within the past 12 months, did you worry whether your food would run out before you got money to buy more?: I choose not to answer this question Do you have trouble paying for medicines?: I choose not to answer this question Do you have trouble getting transportation to medical appointments?: I choose not to answer this question Do you have trouble paying your heating and electricity bill?: I choose not to answer this question Do you have trouble taking care of your child, family member or friend?: I choose not to answer this question Do you have trouble with day-to-day activities such as bathing, preparing meals, shopping, managing finances, etc.?: I choose not to answer this question Are you currently unemployed and looking for a job?: I choose not to answer this question Are you interested in more education?: I choose not to answer this question Please select the resources that you would like help with: Housing/Skilled Nursing Currently or been in a relationship where the following occur: No concerns reported THRIVE Score: 0 AUDIT C Alcohol Use Questionnaire (AUDIT-C) 1. How often do you have a drink containing alcohol?: Never Total Score: 0 RONI-7 AMB Questionnaire RONI-7 Date RONI - 7 assessed: 09/17/23 Feeling nervous, anxious, or on edge: 0 = Not at all Not being able to stop or control worryin = Not at all Worrying too much about different things: 0 = Not at all Trouble relaxin = Not at all Being so restless that it is hard to sit still: 0 = Not at all Becoming easily annoyed or irritable: 1 = Several days Feeling afraid as if something awful might happen: 0 = Not at all Total RONI-7 score (0-4 normal; 5-9 mild; 10-14 moderate; 15-21 severe): 1 Source: Developed by Drs. Eric aPrk, Elissa James, Misha Rich and colleagues, with an educational kristen from [employer]. RONI-7 Assessment Billing RONI-7 Assessment Tool: RONI-7 Assessment 02897 Review of Systems Const Denies body aches, Denies fatigue, Denies fever(s) and Denies headache(s) Eyes Details: Goes to [place] [facility] Denies change in vision and Reports requires corrective lenses ENT Details: Sees dentist every 6 months for prophylaxis Denies dizziness, Denies headache(s), Denies nasal congestion and Denies sore throat Card Denies chest pain, Denies lightheadedness, Denies palpitations and Denies dyspnea Resp Denies chest congestion, Denies cough, Denies dyspnea and Denies wheezing GI Denies abdominal pain, Denies change in bowel habits and Denies heartburn Denies urinary frequency, Denies dysuria and Denies prolapse symptoms Musc Reports as per HPI Skin/Breast Denies lesions and Denies rash Neuro Denies dizziness and Denies headache(s) Psych Reports as per HPI Endo Denies fatigue, Denies polydipsia, Denies polyuria and Denies palpitations Chandler/Lymph Denies easy bruising Aller/Immun Denies seasonal rhinorrhea and Denies wheezing Physical exam (Primary Care) Vital Signs: Last Vital Signs Pulse 75 09/17/23 08:36 BP 122/72 09/17/23 08:36 Pulse Ox 97 09/17/23 08:36 Oxygen Delivery Method Room Air 09/17/23 08:36 BMI result Body Mass Index 38.1 Tobacco/Smoking Status: Tobacco use Status Tobacco use date assessed 09/17/23 09/17/23 08:29 Patient Tobacco Use Status Current everyday Tobacco 09/17/23 08:29 Tobacco use type Cigarette 09/17/23 08:29 e-Cigarette/Vaping Use Never Used 09/17/23 08:29 Are you ready to quit: No Tobacco cessation counseling provided: Yes PHQ-9: PHQ-9 Score PHQ-9: Total score 0 09/17/23 08:29 Depression Screening Interpretation: Negative Thrive Assessment: Date of Thrive Assessment Date Thrive assessed 09/17/23 09/17/23 08:29 Currently or been in a relationship where the following occur: No concerns reported Const General: cooperative, comfortable, no acute distress and alert Nutritional Appearance: obese Orientation/consciousness: patient oriented x3 HENDC Head: Yes normocephalic Ears: external ears normal General nose exam: Normal external nose present and No nasal discharge present Face and sinus: Yes face symmetric Mouth: Normal oral and palatal mucosa present, oropharynx normal and moist mucous membranes Eyes General: appearance normal, both eyes and all related structures Conjunctivae: conjunctivae normal Pupils: Equal, round and reactive pupils present EOM: EOMs intact bilaterally Neck Neck: Yes full ROM, Yes no lymphadenopathy and Yes supple Thyroid: Thyroid normal Chest Chest palpation & inspection: normal inspection of the chest Breast/axilla inspection: normal inspection of the breasts Breast/axilla palpation: normal palpation of the breasts Resp Effort & Inspection: normal respiratory effort and able to speak in complete sentences Auscultation: clear to auscultation bilaterally Cardio Rate: regular rate Rhythm: regular rhythm Heart sounds: S1 normal heart sound present and S2 normal heart sound present GI Inspection: Yes normal to inspection and Yes obesity Palpation (GI): Soft to palpation, Firmness to palpation present (GI), nontender and no masses Auscultation: normal bowel sounds Back/Spine/Pelvis Other: Slight swelling and tenderness to palpation over right trapezius Cervical Spine: cervical ROM normal Thoracic/Lumbar Spine: thoracic and lumbar spine normal to inspection Skin General skin exam: no rashes or lesions noted Neuro General: patient oriented x3, gait normal, tone normal, moves all extremities, Normal light touch and pain sensation and no focal motor deficits Cranial nerves: Yes Equal, round and reactive pupils present Cognition (Neuro): normal cognition Gait exam (Neuro): Normal gait present Motor exam (neuro): 5/5 motor strength present throughout Extrem Other: Crepitus bilateral knee General: Yes full ROM, Yes no joint enlargement, Yes no pedal edema, Yes no calf tenderness and Yes normal gait Psych Appearance: grossly normal and well kempt Mental Status: mental status grossly normal Speech and movement: Normal speech and movement present Affect: normal affect Attitude: cooperative Thought process: Normal thought process present Thought content: Normal thought content present Assessment and Plan Assessment & Plan (1) Annual visit for general adult medical examination with abnormal findings: Code(s): Z00.01 - Encounter for general adult medical examination with abnormal findings Plan: Will check appropriate labs. Continue regular dental visit every 6 months and regular eye exams, at least every 2 years, goes to [place] [facility]. Take adequate calcium in diet and vitamin-D 3 at 2000 IU per cap once a day, in addition to weight-bearing exercises to help maintain good muscle tone and weight control. Instructed to do self-breast exam, and recommended to get yearly mammogram, scheduled and also scheduled a bone density scan to be done together with up-to-date with her colon cancer screening, done last year, due again for Cologuard test in 2025. Has had COVID vaccines in the past does not want to get further back boosters, reminded to get yearly flu shot, up-to-date with her shingles vaccine and Tdap (2) Vitamin D deficiency: Code(s): E55.9 - Vitamin D deficiency, unspecified Plan: Vitamin-D level check, continue taking vitamin-D 3 supplement 50 mcg daily (3) Impaired fasting glucose: Code(s): R73.01 - Impaired fasting glucose Plan: Your previous fasting blood sugars were elevated above 100 mg/dL. Impaired glucose metabolism increases the risk for developing diabetes mellitus type 2, as well as heart attack and stroke later on. Lifestyle changes that promotes weight loss, healthy eating habits, and regular exercise are important, and can prevent the progression to diabetes (4) Varicose veins of left lower extremity with inflammation: Code(s): I83.12 - Varicose veins of left lower extremity with inflammation Plan: Advised to wear compression socks when going to work as she stands all the time, weight loss recommended. Referred to vascular surgery for further evaluation management (5) Strain of cervical portion of right trapezius muscle: Code(s): S16.1XXA - Strain of muscle, fascia and tendon at neck level, initial encounter Plan: Advised to try massaging diclofenac gel to affected area 4 times a day as needed. Return to clinic if no improvement (6) Mixed dyslipidemia: Code(s): E78.2 - Mixed hyperlipidemia Plan: Fasting lipid panel ordered . Reinforced adherence to low-cholesterol diet and regular exercise, at least 30 minutes 3 to 4 times a week. Advised patient to make healthy food choices, eat more fruits, vegetables, whole grains, wild caught fish and low-fat dairy. Limit amount of meat and fried or fatty food products, as well as processed foods and fast foods. (7) Morbid obesity with BMI of 40.0-44.9, adult: Code(s): E66.01 - Morbid (severe) obesity due to excess calories; Z68.41 - Body mass index [BMI] 40.0-44.9, adult Plan: Your BMI is above the ideal range. I deal BMI is between 18.5- 24. BMI is calculated from you height and weight. Weight gain happens when you taken more calories than you burn off. Discussed need to increase activity and weight reduction. Recommended focusing on improving health instead of dieting. Mediterranean diet is a healthy diet that helps, limit food high in fat, sugar, and calories. Eat slowly, pay attention to portion sizes, plan your meals ahead of time, start regular physical activity, at least 150 minutes of moderate intensity exercise, or 90 minutes per week of vigorous exercise. Keeping a food diary, tracking what you eat and your physical activity can help assess what improvements you can make. There are many health problems associated with being overweight/obese, so it is important to improve your diet and exercise. There are medications and surgical options available, but Lifestyle changes are the 1st step. (8) Smoker unmotivated to quit: Code(s): F17.200 - Nicotine dependence, unspecified, uncomplicated Plan: Patient strongly advised to stop smoking, as smoking damages blood vessels, degenerative of joints and spine, damage to lungs and heart., predisposes to developing certain cancers like lung, breast, bladder, colon. Recommended to try decreasing cigarette use by 1-2 cigarettes a day. Advised to monitor what triggers are for smoking so that this can be discussed on the next office visit. We can discuss different options to quit smoking when ready. (9) Advanced directives, counseling/discussion: Code(s): Z71.89 - Other specified counseling Plan: Initiated the conversation about Advanced Directives. Advanced Directives help patients prepare for current and future decisions about their medical treatment and place of care. Discussed with patient that it is a process where a patients current condition and prognosis are reviewed, their wishes for information regarding their illness are elicited, and likely medical dilemmas are presented and options discussed. Healthcare proxy form completed today. The form can be amended as needed, reviewed yearly and make changes as needed Orders: Orders XR DEXA axial skeleton Today Z12.31 - Encounter for screening mammogram for malignant neoplasm of breast, Z78.0 - Asymptomatic menopausal state Hemoglobin A1c Today E55.9 - Vitamin D deficiency, unspecified, E78.2 - Mixed hyperlipidemia, R73.01 - Impaired fasting glucose Lipid Panel Today E55.9 - Vitamin D deficiency, unspecified, E78.2 - Mixed hyperlipidemia, R73.01 - Impaired fasting glucose Aspartate Amino Transferase Today E55.9 - Vitamin D deficiency, unspecified, E78.2 - Mixed hyperlipidemia, R73.01 - Impaired fasting glucose MM tomosynthesis screening BI Today Z12.31 - Encounter for screening mammogram for malignant neoplasm of breast, Z78.0 - Asymptomatic menopausal state Basic Metabolic Panel Fasting Today E55.9 - Vitamin D deficiency, unspecified, E78.2 - Mixed hyperlipidemia, R73.01 - Impaired fasting glucose Vitamin D 25-OH Total Today E55.9 - Vitamin D deficiency, unspecified, E78.2 - Mixed hyperlipidemia, R73.01 - Impaired fasting glucose Alanine Aminotransferase Today E55.9 - Vitamin D deficiency, unspecified, E78.2 - Mixed hyperlipidemia, R73.01 - Impaired fasting glucose Referrals Vascular Surgery Referral I83.12 - Varicose veins of left lower extremity with inflammation Coding Level of Care Code Est Pt Prev Care 40-64y([id number]) Diagnoses Annual visit for general adult medical examination with abnormal findings Z00.01 Vitamin D deficiency E55.9 Impaired fasting glucose R73.01 Varicose veins of left lower extremity with inflammation I83.12 Strain of cervical portion of right trapezius muscle S16.1XXA Mixed dyslipidemia E78.2 Morbid obesity with BMI of 40.0-44.9, adult E66.01; Z68.41 Smoker unmotivated to quit F17.200 Advanced directives, counseling/discussion Z71.89 Additional Codes RONI-7 Assessment Billing - RONI-7 Assessment Tool: RONI-7 Assessment [id number] ([id number])
[2023-09-17 08:36] VITALS: BP 122/72; PULSE 75; O2SAT 97; BMI 38.1
== END 2023-09-17 09:12 | disposition home or self-care (01) ==
PROVIDERS: PCP Internal Medicine; Visit Provider Internal Medicine
DX: Z00.00 Encounter for general adult medical examination without abnormal findings (principal); E66.01 Morbid (severe) obesity due to excess calories; Z68.41 Body mass index [BMI] 40.0-44.9, adult; E55.9 Vitamin D deficiency, unspecified; R73.01 Impaired fasting glucose; I83.12 Varicose veins of left lower extremity with inflammation; S16.1XXA Strain of muscle, fascia and tendon at neck level, initial encounter; E78.2 Mixed hyperlipidemia; F17.200 Nicotine dependence, unspecified, uncomplicated; Z71.89 Other specified counseling
CPT/HCPCS: 99396

== ENCOUNTER 2023-09-21 06:34 | Outpatient (REF) | payer OTHER, SELFPAY ==
[2023-09-21 11:41] LABS: Estimated Average Glucose 108 mg/dL; Hemoglobin A1C 148.9338 umol/L; Hemoglobin A1c % 5.4 % (<6.0)
[2023-09-21 11:53] LABS: Alanine Aminotransferase 14 U/L (0-31); Anion Gap 13 (12-20); Aspartate Amino Transferase 18 U/L (5-31); Blood Urea Nitrogen 14 mg/dL (9-16); Calcium 9.4 mg/dL (8.4-10.2); Carbon Dioxide 25 mmol/L (22-29); Chloride 107 mmol/L (96-108); Cholesterol 194 mg/dL (<200); Estimated Glomerular Filt Rate > 60; Glucose Fasting 93 mg/dL (60-99); HDL Cholesterol 39 mg/dL (>40); LDL Cholesterol Calculated 126 mg/dL (<100); Potassium 4.4 mmol/L (3.3-5.1); Sodium 141 mmol/L (135-145); Triglycerides 148 mg/dL (<150)
[2023-09-21 12:10] LABS: Vitamin D 25-OH Total 45.2 ng/mL (>30)
== END 2023-09-21 06:35 | disposition home or self-care (01) ==
LOC: HO.HMGCLDS 06:34
PROVIDERS: PCP Internal Medicine; Visit Provider Internal Medicine
DX: E55.9 Vitamin D deficiency, unspecified (principal); R73.01 Impaired fasting glucose; E78.2 Mixed hyperlipidemia
CPT/HCPCS: 36415; 80048; 80061; 82306; 83036; 84450; 84460

== ENCOUNTER 2023-10-11 07:39 | Outpatient (REF) | payer OTHER, SELFPAY ==
--- NOTE | ~2023-10-11 | MM_ITS ---
EXAMINATION: MM SCREENING DIGITAL BREAST TOMOSYNTHESIS, BILATERAL CLINICAL INFORMATION: Screening. Asymptomatic. COMPARISON: Mammography: This study is compared with prior exams dating back to 2018. TECHNIQUE: Digital breast tomosynthesis is performed in both the craniocaudal and mediolateral oblique views along with computer-aided detection (CAD). Synthesized 2D images are generated from the tomosynthesis. FINDINGS: The breasts are almost entirely fatty (ACR BI-RADS breast composition Category a). There are no significant masses, abnormal calcifications, or other abnormalities. MM/MM tomosynthesis screening BI IMPRESSION: No mammographic evidence of malignancy. ASSESSMENT: BI-RADS BI-RADS 1 - Negative RECOMMENDATION: Routine annual mammography screening. 1 year F/U This examination should not preclude the clinical evaluation of a suspicious palpable abnormality. This patient's information was entered into a reminder system with a target due date for their next mammogram. Electronically signed by: Dianne Hicks MD 11/07/2023 07:46 PM EDT
--- NOTE | ~2023-10-11 | MM_ITS ---
EXAMINATION: BONE DENSITOMETRY CLINICAL INDICATION: Asymptomatic menopausal state. COMPARISON: This is the patient's baseline examination. TECHNIQUE: Using a [employer] DXA System (software version: 13.1) manufactured by [employer], dual-energy x-ray absorptiometry was performed of the lumbar spine and left hip. The images are of good technical quality. Summary results are attached. FINDINGS: LEFT FEMUR, NECK: BMD 0.885 g/cm2, Z-score -0.5, T-score -1.1, osteopenia. LEFT FEMUR, TOTAL: BMD 1.030 g/cm2, Z-score 0.5, T-score 0.2, normal. AP SPINE L1-L2 (excluding L3 and L4): The data of L1-L4 has been changed to exclude the L3 and L4 vertebral bodies, because significant degenerative change at these levels may cause overestimation of lumbar spine density. BMD 1.427 g/cm2, Z-score 2.5, T-score 2.2, normal. IDENTIFIED RISK FACTORS: Menopause, current smoker. HISTORY OF FRACTURE: None listed. MEDICATIONS: Vitamin D. MM/XR DEXA axial skeleton IMPRESSION: 1. DIAGNOSIS: Osteopenia based on the lowest T-score value of -1.1 in the femoral neck applying World Health Organization criteria. 2. 10-YEAR FRACTURE RISK PREDICTION, FRAX: Major osteoporotic fracture (clinical spine, forearm, hip or shoulder) 7.1%. Hip fracture 0.8%. 3. Treatment Recommendations: NOF guidelines recommend consideration for treatment in postmenopausal women and men age 50 and older presenting with the following: -A hip or vertebral (clinical or morphometric) fracture. -T-score less than or equal to -2.5 at the femoral neck or spine after appropriate evaluation to exclude secondary causes. -Low bone mass at the hip or spine and a 10-year fracture probability by FRAX of greater than or equal to 3% for hip fracture or greater than or equal to 20% for major osteoporotic fracture based on the [place] adapted WHO algorithm. 4. Other Recommendations: All treatment decisions require clinical judgment and consideration of individual patient factors, including patient preferences, comorbidities, previous drug use, risk factors not captured in the FRAX model (e.g. frailty, falls, vitamin D deficiency, increased bone turnover, interval significant decline in bone density) and possible under or overestimation of fracture risk by FRAX. Additional medical evaluation for secondary cause of low bone mineral density may be appropriate. FUTURE SCAN RECOMMENDATION: People with diagnosed cases of osteoporosis or at high risk for fracture should have regular bone mineral density tests. For patients eligible for Medicare, routine testing is allowed once every 2 years. The testing frequency can be increased to one year for patients who have rapidly progressing disease, those who are receiving or discontinuing medical therapy to restore bone mass, or have additional risk factors. Electronically signed by: Yesy Barrientos MD 11/12/2023 01:21 PM EDT
== END 2023-10-11 07:40 | disposition home or self-care (01) ==
LOC: HO.MAMMO 07:39
PROVIDERS: PCP Internal Medicine; Visit Provider Internal Medicine
DX: Z12.31 Encounter for screening mammogram for malignant neoplasm of breast (principal); Z13.820 Encounter for screening for osteoporosis; Z78.0 Asymptomatic menopausal state
CPT/HCPCS: 77063; 77067; 77080

== ENCOUNTER → 2023-10-11 08:00 | Outpatient (BNV) | payer OTHER, SELFPAY | PROVIDERS: PCP Internal Medicine; Visit Provider Radiology Diagnostic Radiology | DX: Z12.31 Encounter for screening mammogram for malignant neoplasm of breast (principal) | CPT/HCPCS: 77063; 77067 ==

== ENCOUNTER 2023-12-03 09:11 | Outpatient (AMB) | payer OTHER, SELFPAY ==
--- NOTE | 2023-12-03 09:13 | MHC.OFFVIS ---
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 Patient states her left leg sometimes swells and throbs. She does not have any issues with the right leg. Non diabetic. Patient is a smoker. 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 She states she has been having varicose veins for years now. She is having intermittent throbbing and swelling bilaterally but left more than right. She states when 1 of the varicosities gets scratched it bleeds for an excessive amount of time. She does state that her legs do feel tired most of the time especially after work. She states the throbbing and swelling is very intermittent but does affect her. 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 She does endorse that she elevates her legs when she is at home. She has not done any other conservative measures at this point. She does not walk for physical activity at this point. She does smoke approximately 1/2 pack per day for the last 40 years. She is not a diabetic. [facility] Medical History Smoker unmotivated to quit Strain of cervical portion of right trapezius muscle Varicose veins of left lower extremity with inflammation Mixed dyslipidemia Hidrocystoma of eyelid Anemia Back pain Arthritis Morbid obesity with BMI of 40.0-44.9, adult Impaired fasting glucose Osteoarthritis of right hip Right anterior knee pain Vitamin D deficiency Not ready to quit smoking Obesity (BMI 30-39.9) Chronic right hip pain Varicose veins of lower extremities without ulcer or inflammation History of cholelithiasis Surgical History Hx laparoscopic cholecystectomy H/O: History of tubal ligation Family History Father No problems noted. Mother Hip osteoarthritis Uterine cancer Brother No problems noted. Maternal Grandmother No problems noted. Maternal Grandfather No problems noted. Paternal Grandmother No problems noted. Maternal Grandfather No problems noted. 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 Cognitive needs: No Hearing needs: No Vision needs: Yes Review of Systems Const Reports as per HPI and Denies weakness ENT Reports Normal hearing present and Denies dizziness Card Reports as per HPI, Denies chest pain, Denies chest pain at rest, Denies chest pain with activity, Denies dyspnea and Denies dyspnea on exertion Resp Reports as per HPI, Denies cough, Denies dyspnea and Denies dyspnea on exertion GI Reports as per HPI, Denies abdominal pain, Denies nausea and Denies vomiting Musc Denies numbness Skin/Breast Reports as per HPI, Denies erythema and Denies wounds Neuro Reports Normal hearing present, Denies dizziness, Denies numbness, Denies Sensory deficit (Neuro) and Denies weakness Psych Reports no additional complaints Endo Reports no additional complaints Physical Exam Const General: healthy appearing and no acute distress Orientation/consciousness: patient oriented x3 HEENT Head: Yes normal to inspection Ears: hearing grossly normal bilaterally Mouth: Normal oral and palatal mucosa present Resp Effort & Inspection: normal respiratory effort and able to speak in complete sentences Auscultation: clear to auscultation bilaterally Cardio Jugular venous distension: no JVD Rate: regular rate Rhythm: regular rhythm Heart sounds: S1 normal heart sound present and S2 normal heart sound present Bruits: no abdominal aortic bruits, no carotid bruits, no femoral bruits and no renal bruits Peripheral pulses: Peripheral pulses 2+ throughout GI Inspection: Yes normal to inspection Palpation (GI): No Abdominal aortic bruit present Skin Other: Multiple superficial varicosities noted on her left lower extremity. Larger varicosity noted behind her left knee. Left lower extremity combination of spider veins and telangiectasia. Her right lower leg has several telangiectatasias but no major varicosities noted. Bilateral palpable DP pulses. General skin exam: no rashes or lesions noted Wounds: no wounds Hair: normal Neuro General: patient oriented x3 Cranial nerves: Yes Normal hearing present Cognition (Neuro): normal cognition Gait exam (Neuro): Normal gait present Motor exam (neuro): 5/5 motor strength present throughout Sensory Exam: No Sensory deficit (Neuro) Extrem General: Yes normal to inspection, Yes full ROM, Yes capillary refill normal and Yes normal gait Assessment & Plan Assessment & Plan (1) Varicose veins of both lower extremities with inflammation: Code(s): I83.11 - Varicose veins of right lower extremity with inflammation; I83.12 - Varicose veins of left lower extremity with inflammation Category: Medical Plan: See below. Plan In short, the patient has evidence of venous insufficiency. I have discussed the pathophysiology with the patient. In addition I have provided informational material regarding venous disease to the patient. We have discussed conservative measures including compression, elevation, and exercise. I have also provided a handout regarding appropriate use of compression stockings and where to purchase good compression stockings as well. I have taken the liberty of ordering venous insufficiency testing with the patient. They will follow up with me after testing. We also discussed the importance of quitting smoking; the patient is not at the point currently where she would like to. We discussed the importance of physical activity and a good well-balanced diet and drinking plenty of water. The patient had an opportunity to ask questions regarding the treatment plan. All questions were answered. Physical exam results were discussed and reviewed in detail. No major barriers to understanding were identified. The patient expressed understanding and agreement with the above treatment plan. The patient is aware they should contact our office by phone for worsening of the current condition or the appearance of new symptoms. Thank you for allowing me to participate in the vascular care of this patient. If you have any questions or concerns regarding the treatment for the above condition please do not hesitate to contact me. The office telephone contact is [phone]. This note is constructed using voice recognition software. While every effort has been made to ensure accuracy, financial services associate errors may have been included. Thank you for allowing me to participate in the care of your patient. Yours sincerely, NABIL Knutson Orders: Orders US venous duplex LE BI 1 Week I83.11 - Varicose veins of right lower extremity with inflammation, I83.12 - Varicose veins of left lower extremity with inflammation Coding Level of Care Code New Pt New Pt Level 4 (00816) New Pt Complex EM visit Add On G2211 Patient Type New Diagnoses Varicose veins of both lower extremities with inflammation I83.11; I83.12
== END 2023-12-03 09:34 | disposition home or self-care (01) ==
PROVIDERS: PCP Internal Medicine; Visit Provider Physician Assistant Surgical
DX: I83.11 Varicose veins of right lower extremity with inflammation (principal); I83.12 Varicose veins of left lower extremity with inflammation
CPT/HCPCS: 99204

== ENCOUNTER → 2023-12-03 09:11 | Outpatient (BNVA) | payer OTHER, SELFPAY | PROVIDERS: PCP Internal Medicine; Visit Provider Physician Assistant Surgical ==

== ENCOUNTER 2023-12-06 10:01 | Outpatient (REF) | payer OTHER, SELFPAY ==
--- NOTE | ~2023-12-06 | US_ITS ---
EXAMINATION: US LOWER EXTREMITY VENOUS (REFLUX EXAM), BILATERAL CLINICAL INDICATION: Varicose veins of the right lower extremity COMPARISON: None. TECHNIQUE: Color flow triplex imaging and compression Doppler was performed to evaluate both the deep and the superficial systems bilaterally. To evaluate the superficial system, the examination was performed in the upright position. Color-flow Doppler ultrasound and compression ultrasound were utilized. In addition, maneuvers were utilized to demonstrate reflux. FINDINGS: 1. DEEP VENOUS ULTRASOUND OF THE RIGHT LOWER EXTREMITY: Common Femoral Vein: Compressible, normal respiratory variation and augmented flow. Femoral Vein: Compressible, normal color flow and augmentation. Popliteal Vein: Compressible, normal augmentation. Deep Reflux: There is no evidence of reflux in the deep system in either the common femoral vein, superficial femoral or the popliteal vein. There is no evidence of a Mallory's cyst. 2. SUPERFICIAL ULTRASOUND WITH DOPPLER OF RIGHT LOWER EXTREMITY: GREAT SAPHENOUS VEIN: Saphenofemoral Junction: 0.5 cm; Reflux: 0 ms Proximal Thigh: 0.5 cm; Reflux: 0 ms Mid Thigh: 0.3 cm; Reflux: 0 ms Above Knee: 0.4 cm; Reflux: 0 ms At Knee: 0.2 cm; Reflux: 0 ms Below Knee: 0.2 cm; Reflux: 0 ms Mid Calf: 0.3 cm; Reflux: 0 ms Ankle: 0.2 cm; Reflux: 0 ms SMALL SAPHENOUS VEIN: Saphenopopliteal Junction: 0.2 cm; Reflux: 0 ms Proximal: 0.3 cm; Reflux: 0 ms Distal: 0.2 cm; Reflux: 0 ms VEIN OF GIACOMINI: Size: 0.4; Reflux: 0 ms PERFORATORS: Location: Mid thigh Size: 0.2; Reflux: 0 ms Location: Mid calf Size: 0.2; Reflux: 0 ms VARICOSITIES: Location: At knee Size: 0.3; Reflux: 0 ms 3. DEEP VENOUS ULTRASOUND OF THE LEFT LOWER EXTREMITY: Common Femoral Vein: Compressible, normal respiratory variation and augmented flow. Femoral Vein: Compressible, normal color flow and augmentation. Popliteal Vein: Compressible, normal augmentation. Deep Reflux: There is no evidence of reflux in the deep system in either the common femoral vein, superficial femoral or the popliteal vein. There is no evidence of a Mallory's cyst. 4. SUPERFICIAL ULTRASOUND WITH DOPPLER OF LEFT LOWER EXTREMITY: GREAT SAPHENOUS VEIN: Saphenofemoral Junction: 0.7 cm; Reflux: 0 ms Proximal Thigh: 0.6 cm; Reflux: 0 ms Mid Thigh: 0.4 cm; Reflux: 0 ms Above Knee: 0.4 cm; Reflux: 0 ms At Knee: 0.4 cm; Reflux: 0 ms Below Knee: 0.1 cm; Reflux: 0 ms Mid Calf: 0.2 cm; Reflux: 0 ms Ankle: 0.2 cm; Reflux: 0 ms SMALL SAPHENOUS VEIN: Saphenopopliteal Junction: 0.2 cm; Reflux: 0 ms Proximal: 0.2 cm; Reflux: 0 ms Distal: 0.2 cm; Reflux: 0 ms VEIN OF GIACOMINI: Size: 0.3; Reflux: 0 ms PERFORATORS: Location: Mid calf Size: 0.2; Reflux: 0 ms Location: Mid thigh Size: 0.2; Reflux: 0 ms Location: Proximal calf Size: 0.1; Reflux: 0 ms Location: Mid calf Size: 0.2; Reflux: 0 ms Location: Distal calf Size: 0.2; Reflux: 0 ms VARICOSITIES: Location: Mid calf Size: 0.3; Reflux: 0 ms Location: At knee Size: 0.3; Reflux: 0 ms Location: Proximal lateral calf Size: 0.4; Reflux: 2660 ms US/US venous insuf bilat IMPRESSION: 1. No evidence of deep venous thrombosis in bilateral lower extremities or reflux. 2. Competent bilateral great saphenous veins and small saphenous veins. 3. Bilateral perforators and varicose veins, as above, greater on the left. Only one varicose vein demonstrates reflux measuring 2600 ms in the left proximal lateral calf. Electronically signed by: Flakita Mariee MD 12/17/2023 09:43 AM EDT
== END 2023-12-06 10:02 | disposition home or self-care (01) ==
LOC: HO.US 10:01
PROVIDERS: PCP Internal Medicine; Visit Provider Physician Assistant Surgical
DX: I83.11 Varicose veins of right lower extremity with inflammation (principal); I83.12 Varicose veins of left lower extremity with inflammation
CPT/HCPCS: 93970

== ENCOUNTER 2023-12-12 08:28 | Outpatient (AMB) | payer OTHER, SELFPAY ==
[2023-12-12 08:57] VITALS: BMI 38.1
--- NOTE | 2023-12-12 08:57 | A.OFFVIS_ITS ---
Vital Signs 12/12/23 08:57 Height 5 ft 6 in Weight 236 lb BMI 38.1 Intake Visit Reasons: follow up s/p US 12/06/23 Intake Note: follow up US 12/06/23, pt states Left LE is worse than the Right LE. States she has throbbing and swelling and mostly spider looking veins. Pt states she wears compression socks and is wearing them today. Accompanied by: Self / Same As Patient Allergies No Known Allergies [No Known Allergies*] Allergy (Verified 12/12/23 09:00) HPI HPI follow up s/p US 12/06/23: Details: Tyesha is a pleasant 63-year-old female presenting today for follow-up to her ultrasound venous insufficiency from 12/05. She continues to endorse some left lower extremity pain. She is wearing her compression stockings daily as well as elevating and attempting physical activity. She states the spider veins of her left lower leg have not bled in awhile now. [facility] Medical History Smoker unmotivated to quit Strain of cervical portion of right trapezius muscle Varicose veins of left lower extremity with inflammation Mixed dyslipidemia Hidrocystoma of eyelid Anemia Back pain Arthritis Morbid obesity with BMI of 40.0-44.9, adult Impaired fasting glucose Osteoarthritis of right hip Right anterior knee pain Vitamin D deficiency Not ready to quit smoking Obesity (BMI 30-39.9) Chronic right hip pain Varicose veins of lower extremities without ulcer or inflammation History of cholelithiasis Surgical History Hx laparoscopic cholecystectomy H/O: History of tubal ligation Family History Father No problems noted. Mother Hip osteoarthritis Uterine cancer Brother No problems noted. Maternal Grandmother No problems noted. Maternal Grandfather No problems noted. Paternal Grandmother No problems noted. Maternal Grandfather No problems noted. 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 Cognitive needs: No Hearing needs: No Vision needs: Yes Review of Systems Const Reports as per HPI and Denies weakness ENT Reports Normal hearing present and Denies dizziness Card Reports as per HPI, Denies chest pain, Denies chest pain at rest, Denies chest pain with activity, Denies dyspnea and Denies dyspnea on exertion Resp Reports as per HPI, Denies cough, Denies dyspnea and Denies dyspnea on exertion GI Reports as per HPI, Denies abdominal pain, Denies nausea and Denies vomiting Musc Denies numbness Skin/Breast Reports as per HPI, Denies erythema and Denies wounds Neuro Reports Normal hearing present, Denies dizziness, Denies numbness, Denies Sensory deficit (Neuro) and Denies weakness Psych Reports no additional complaints Endo Reports no additional complaints Physical Exam Vital Signs: BMI result Body Mass Index 38.1 Const General: healthy appearing and no acute distress Orientation/consciousness: patient oriented x3 HEENT Head: Yes normal to inspection Ears: hearing grossly normal bilaterally Mouth: Normal oral and palatal mucosa present Resp Effort & Inspection: normal respiratory effort and able to speak in complete sentences Auscultation: clear to auscultation bilaterally Cardio Jugular venous distension: no JVD Rate: regular rate Rhythm: regular rhythm Heart sounds: S1 normal heart sound present and S2 normal heart sound present Bruits: no abdominal aortic bruits, no carotid bruits, no femoral bruits and no renal bruits Peripheral pulses: Peripheral pulses 2+ throughout GI Inspection: Yes normal to inspection Palpation (GI): No Abdominal aortic bruit present Skin Other: Multiple spider veins located on her left lower extremity, very close to the surface, largest 2 approximately 3 cm. Several telangiectasias on her right lower extremity but no major varicosities noted. Bilateral palpable DP pulses. General skin exam: no rashes or lesions noted Wounds: no wounds Hair: normal Neuro General: patient oriented x3 Cranial nerves: Yes Normal hearing present Cognition (Neuro): normal cognition Gait exam (Neuro): Normal gait present Motor exam (neuro): 5/5 motor strength present throughout Sensory Exam: No Sensory deficit (Neuro) Extrem General: Yes normal to inspection, Yes full ROM, Yes capillary refill normal and Yes normal gait Results Reviewed Results Reviewed: Brief summary of venous insufficiency testing is as follows: right great saphenous vein: negative right small saphenous vein: negative right accessory vein: none present left great saphenous vein: negative left small saphenous vein: negative left accessory vein: none present Please note there is no evidence of any venous aneurysms or significant tortuosity Assessment & Plan Assessment & Plan (1) Varicose veins of both lower extremities with inflammation: Code(s): I83.11 - Varicose veins of right lower extremity with inflammation; I83.12 - Varicose veins of left lower extremity with inflammation Category: Medical Plan: Tyesha is presenting today for a follow-up to her venous insufficiency ultrasound. Plan Tyesha is presenting today for a follow-up to her venous insufficiency ultrasound. She continues to have some heaviness, tiredness and pain in her lower extremities, most after work in the mornings. She has been wearing her compression stockings as well as elevating her legs and walking. We reviewed the ultrasound which did not reveal any significant tortuosity or venous insufficiency. We discussed to continue with conservative management. We discussed that if the spider veins bleed to apply deep pressure and a bandage. We discussed that there could be cosmetic treatments for these but these are not procedures performed in the office. We discussed that if anything changes or worsens, please reach out to our office. Thank you for allowing us to take care of you. Coding Level of Care Code Established Pt Est Pt Level 4 (97985) Patient Type Established Diagnoses Varicose veins of both lower extremities with inflammation I83.11; I83.12 Comment review of USVI, pt education
== END 2023-12-12 09:09 | disposition home or self-care (01) ==
PROVIDERS: PCP Internal Medicine; Visit Provider Physician Assistant Surgical
DX: I83.11 Varicose veins of right lower extremity with inflammation (principal); I83.12 Varicose veins of left lower extremity with inflammation
CPT/HCPCS: 99214

== ENCOUNTER → 2023-12-12 08:28 | Outpatient (BNVA) | payer OTHER, SELFPAY | PROVIDERS: PCP Internal Medicine; Visit Provider Physician Assistant Surgical ==

== ENCOUNTER 2024-08-20 09:46 | Outpatient (AMB) | payer OTHER, SELFPAY ==
--- OUTSIDE RECORDS SUMMARY | 2024-08-20 10:14 | XMS_ITS | Patient Health Record ---
Author Organization [facility] michelle [place] Address [address] [place] [address] Care Team Providers Care Quality Control Coordinator Name Role Phone Raf CABRERA, Martha Kerns Primary Care Provider Un available Lizette Kline Unavailable [phone] Reason For Referral No Information Medications Medication SIG (Take, Route, Fr equency, Duration) Notes Start Date End Date Status LamISIL 250 MG 1 tablet Orally Once a day; Duration: 30 days Active Social History Tobacco Use: Social History Observation Description Date Details (start date - stop date) Former Smoker NA - NA Tobacco Use/Smoking Question Answer Notes Are you a: former smoker Additional Findings: Tobacco Non-User Current no n-smoker Alcohol Screen Question Answer Notes Did you have a drink containing alcohol in the p ast year? No Points 0 Interpretation Negative Tobacco use other than smoking: Question Answer Notes Are you an other tobacco user? No Plan Of Treatment Pending Test Test Name Order Date *Liver Function Test (LFT) 03/27/2022 Insurance Providers Payer Name Payer Address Payer Phone Subscriber Number Group Number Insured Name Patient Relationship to Insured Coverage Start Date Coverage End Date [employer] [address] [place] [address] [phone] [id number] Tyesha Knapp Self - patient is the insured Medical (General) History Medical History History ICD Code Arthritis Back,Hip,and Knee pain Measles Mumps Chicken pox Surgical History Surgery Date(Month/Year)
[2024-08-20 10:30] VITALS: BP 138/76; PULSE 75; TEMP 37; O2SAT 97; BMI 38.2
--- NOTE | 2024-08-20 10:30 | MHC.OFFWIV ---
Intake Vital Signs 08/20/24 10:30 Height 5 ft 6 in Weight 237 lb BMI 38.2 BP 138/76 Blood Pressure Location Rt brachial Position Sitting Pulse 75 Pulse Source Pulse Oximeter Temp 98.6 F Temp Source Oral Pulse Oximetry (%) 97 Oxygen Delivery Method Room Air Intake Visit Reasons: PE Covid symptoms Intake Note: presents with sore throat, dry cough, sneezing for a couple days. recent covid exposure Patient Tobacco Use Status: Current everyday Tobacco user Allergies No Known Allergies (No Known Allergies*) Allergy (Verified 08/20/24 10:32) Do you need a note to return to daycare/school/sports/work: No HPI HPI Comments History of Present Illness Details History - The patient is a 64-year-old female presenting with suspected COVID-19 infection due to exposure and symptoms. - The patient reports exposure to a COVID-19 positive individual, her nephew, who tested positive the previous day. - Symptoms began late Saturday night, including cough, sore throat, sneezing, stuffy and runny nose. - The patient experienced a slight fever on Saturday into Saturday, managed with DayQuil and NyQuil. - No vomiting, diarrhea, chest pain, or shortness of breath reported. - The patient has been caring for her nephew due to her sister's hospitalization, increasing her exposure risk. - She has not taken a covid test at home. Physical Exam General: Cooperative, healthy appearing, comfortable and no acute distress Orientation/consciousness: Patient oriented x3 Ears: Hearing grossly normal bilaterally, external ears normal and TM's normal bilaterally Nose: Moist mucosa noted Face and sinus: Sinuses nontender to palpation. No sinus pain or pressure. Mouth: Normal oral and palatal mucosa present and moist mucous membranes noted. Throat: Tonsils normal. Uvula is midline. Posterior oropharynx with erythema and no exudates. Eyes: Appearance normal, both eyes and all related structures Neck: Normal visual inspection, full ROM. No lymphadenopathy noted. Respiratory: Clear to auscultation bilaterally. Normal respiratory effort, able to speak in complete sentences. No respiratory distress, not tachypneic, no tripod positioning and no use of accessory muscles. Cardiovascular: Regular rate and rhythm. Normal S1 and S2. No m/r/g noted Skin: No rashes or lesions noted Patient was informed and verbally consented to the use of an ambient scribe for clinic note documentation during this visit [facility] Medical History Smoker unmotivated to quit Strain of cervical portion of right trapezius muscle Varicose veins of left lower extremity with inflammation Mixed dyslipidemia Hidrocystoma of eyelid Anemia Back pain Arthritis Morbid obesity with BMI of 40.0-44.9, adult Impaired fasting glucose Osteoarthritis of right hip Right anterior knee pain Vitamin D deficiency Not ready to quit smoking Obesity (BMI 30-39.9) Chronic right hip pain Varicose veins of lower extremities without ulcer or inflammation History of cholelithiasis Surgical History Hx laparoscopic cholecystectomy H/O: History of tubal ligation Family History Father No problems noted. Mother Hip osteoarthritis Uterine cancer Brother No problems noted. Maternal Grandmother No problems noted. Maternal Grandfather No problems noted. Paternal Grandmother No problems noted. Maternal Grandfather No problems noted. 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 Cognitive needs: No Hearing needs: No Vision needs: Yes Review of Systems Const All systems reviewed & are unremarkable except as noted in HPI and below Physical Exam Vital Signs: Last Vital Signs Temp 98.6 F 08/20/24 10:30 Pulse 75 08/20/24 10:30 BP 138/76 08/20/24 10:30 Pulse Ox 97 08/20/24 10:30 Oxygen Delivery Method Room Air 08/20/24 10:30 BMI result Body Mass Index 38.2 Assessment & Plan Assessment & Plan (1) Cough with congestion of paranasal sinus: Code(s): R05.8 - Other specified cough; R09.81 - Nasal congestion Plan Most likely covid vs RSV vs flu vs viral ilness Plan - Conducted testing for RSV, COVID-19, and influenza A and B. - Advised symptomatic treatment with fluids and rest. - Follow-up planned with results of the tests to be communicated by phone. - VSS, pt well appearing Orders: Orders SARS-CoV2/FLU/RSV Today R09.89 - Other specified symptoms and signs involving the circulatory and respiratory systems Coding Level of Care Code Est Pt Level 3 (07249) Diagnoses Cough with congestion of paranasal sinus R05.8; R09.81
== END 2024-08-20 11:43 | disposition home or self-care (01) ==
PROVIDERS: PCP Internal Medicine; Visit Provider Physician Assistant Medical
DX: R05.8 Other specified cough (principal); R09.81 Nasal congestion

== ENCOUNTER 2024-08-20 09:46 | Outpatient (REF) | payer OTHER, SELFPAY ==
[2024-08-20 14:18] LABS: Resp Syncy Virus RNA Qual PCR NEGATIVE (Negative); SARS COV2 PCR INHOUSE POSITIVE (Negative)
== END 2024-08-20 09:47 | disposition home or self-care (01) ==
LOC: HO.LNP 09:46
PROVIDERS: PCP Internal Medicine; Visit Provider Physician Assistant Medical
DX: R05.8 Other specified cough (principal); R09.89 Other specified symptoms and signs involving the circulatory and respiratory systems
CPT/HCPCS: 87637

== ENCOUNTER 2024-11-30 08:10 | Outpatient (AMB) | payer OTHER, SELFPAY ==
[2024-11-30 08:45] VITALS: BP 102/66; PULSE 76; RESP 16; TEMP 36.7; O2SAT 98; BMI 39.1
--- NOTE | 2024-11-30 08:45 | A.OFFPC_ITS ---
Vital Signs 11/30/24 08:45 Height 5 ft 6 in Weight 242 lb BMI 39.1 BP 102/66 Blood Pressure Location Lt brachial Position Sitting Respiration 16 Pulse 76 Pulse Source Pulse Oximeter Temp 98.0 F Temp Source Oral Pulse Oximetry (%) 98 Oxygen Delivery Method Room Air Intake Visit Reasons: PE Intake Note: Pt is here today for her PE: last mammogram 10/11/23, papsmear 09/05/21, cologuard 10/15/22 Wicker Molded Candles Required: No Allergies No Known Allergies (No Known Allergies*) Allergy (Verified 11/30/24 09:10) Medication List - Last Reconciled 11/30/24 by Martha Carbone MD cholecalciferol (vitamin D3) (Vitamin D3) 50 mcg PO DAILY Tobacco use date assessed: 11/30/24 Dental Screening Dental Screen Date: 11/30/24 Did you have a dental visit in the last 12 months?: Yes Did you have a dental problem in the last 6 months where you did not have access to dental care?: No Was dental information given to patient?: Patient has dentist HPI PE HPI Details last mammogram 10/11/23, papsmear 09/05/21, cologuard 10/15/22 PFSH Medical History Smoker unmotivated to quit Strain of cervical portion of right trapezius muscle Varicose veins of left lower extremity with inflammation Mixed dyslipidemia Hidrocystoma of eyelid Anemia Back pain Arthritis Morbid obesity with BMI of 40.0-44.9, adult Impaired fasting glucose Osteoarthritis of right hip Right anterior knee pain Vitamin D deficiency Not ready to quit smoking Obesity (BMI 30-39.9) Chronic right hip pain Varicose veins of lower extremities without ulcer or inflammation History of cholelithiasis Surgical History Hx laparoscopic cholecystectomy H/O: History of tubal ligation Family History Father No problems noted. Mother Hip osteoarthritis Uterine cancer Brother No problems noted. Maternal Grandmother No problems noted. Maternal Grandfather No problems noted. Paternal Grandmother No problems noted. Maternal Grandfather No problems noted. 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 1. Little interest or pleasure in doing things: not at all 2. Feeling down, depressed, or hopeless: not at all 3. Trouble falling or staying asleep, or sleeping too much: not at all 4. Feeling tired or having little energy: not at all 5. Poor appetite or overeating: not at all 6. Feeling bad about yourself - or that you are a failure or have let yourself or your family down: not at all 7. Trouble concentrating on things, such as reading the newspaper or watching television: not at all 8. Moving or speaking so slowly that other people could have noticed. Or the opposite - being so fidgety or restless that you have been moving around a lot more than usual: not at all 9. Thoughts that you would be better off or of hurting yourself in some way: not at all Total score: 0 Depression Screening Interpretation: Negative Depression Screening Done: Yes 33655 - PHQ-9 Billing: Yes Source: Developed by Drs. Eric Park, Elissa James, Misha Rich and colleagues, with an educational kristen from [employer]. Thrive Questionnaire Date Thrive assessed: 11/24/24 I am a: Patient What is your living situation today?: I have a steady place to live Within the past 12 months, did the food you bought not last and you didn't have the money to get more?: I choose not to answer this question Within the past 12 months, did you worry whether your food would run out before you got money to buy more?: I choose not to answer this question Do you have trouble paying for medicines?: Yes Do you have trouble getting transportation to medical appointments?: No Do you have trouble paying your heating and electricity bill?: No Do you have trouble taking care of your child, family member or friend?: No Do you have trouble with day-to-day activities such as bathing, preparing meals, shopping, managing finances, etc.?: No Are you currently unemployed and looking for a job?: No Are you interested in more education?: No Please select the resources that you would like help with: None Currently or been in a relationship where the following occur: I choose not to answer THRIVE Score: 0 AUDIT C Alcohol Use Questionnaire (AUDIT-C) 1. How often do you have a drink containing alcohol?: Never 2. How many drinks containing alcohol do you have on a typical day when you are drinking?: 1 or 2 3. How often do you have six or more drinks on one occasion?: Never Total Score: 0 Score Reviewed/Action Taken: Yes RONI-7 AMB Questionnaire RONI-7 Date RONI - 7 assessed: 11/30/24 Feeling nervous, anxious, or on edge: 0 = Not at all Not being able to stop or control worryin = Not at all Worrying too much about different things: 0 = Not at all Trouble relaxin = Not at all Being so restless that it is hard to sit still: 0 = Not at all Becoming easily annoyed or irritable: 0 = Not at all Feeling afraid as if something awful might happen: 0 = Not at all Total RONI-7 score (0-4 normal; 5-9 mild; 10-14 moderate; 15-21 severe): 0 Source: Developed by Drs. Eric Park, Elissa James, Misha Rich and colleagues, with an educational kristen from [employer]. RONI-7 Assessment Billing RONI-7 Assessment Tool: RONI-7 Assessment 17116 Review of Systems Const Reports weight gain Eyes Details: Sees [facility] Reports requires corrective lenses Physical exam (Primary Care) Vital Signs: Last Vital Signs Temp 98.0 F 11/30/24 08:45 Pulse 76 11/30/24 08:45 Resp 16 11/30/24 08:45 BP 102/66 11/30/24 08:45 Pulse Ox 98 11/30/24 08:45 Oxygen Delivery Method Room Air 11/30/24 08:45 BMI result Body Mass Index 39.1 Tobacco/Smoking Status: Tobacco use Status Tobacco use date assessed 11/30/24 11/30/24 08:48 Patient Tobacco Use Status Current everyday Tobacco 11/30/24 08:48 Tobacco use type Cigarette 11/30/24 08:48 e-Cigarette/Vaping Use Never Used 11/30/24 08:48 PHQ-9: PHQ-9 Score PHQ-9: Total score 0 11/30/24 08:57 Depression Screening Interpretation: Negative Thrive Assessment: Date of Thrive Assessment Date Thrive assessed 11/24/24 11/30/24 08:48 Currently or been in a relationship where the following occur: I choose not to answer Const Nutritional Appearance: obese Extrem Other: Varicose veins in both lower extremities non thrombosed General: Yes full ROM, Yes no joint enlargement, Yes no clubbing, cyanosis or edema, Yes no calf tenderness and Yes normal gait Office Procedures Flu Questionnaire Does the patient have a severe egg allergy?: No Does the patient have severe life threatening allergies?: No Does the patient have a fever or illness today?: No Has the patient ever had Guillain-Patterson Syndrome?: No Has the patient ever had any past reaction to a flu shot?: No Immunizations Fluarix [id number] (PF) 45 mcg (15 mcg x 3)/0.5 mL IM syringe Performing Provider: Martha Carbone MD Performing Location: [facility] Administered by: Digna Rodriguez CMA on 11/30/24 09:04 Dose Route Admin Location Dispensed Lot Number Expiration Date [facility] Director Of Business Development 0.5 mL IM Left Deltoid 0.5 mL [id number] 08/17/25 [id number] [employer] VIS Given Date VIS Provided VIS Publication Date 11/30/24 Single Vaccine 24 Eligibility Eligibility Date Funding Source Not [facility] Eligible 11/30/24 Private Coding Level of Care Code Est Pt Prev Care 40-64y(05526) Diagnoses Varicose veins of lower extremities without ulcer or inflammation I83.90 Impaired fasting glucose R73.01 Morbid obesity with BMI of 40.0-44.9, adult E66.01; Z68.41 Mixed dyslipidemia E78.2 Smoker unmotivated to quit F17.200 Annual visit for general adult medical examination with abnormal findings Z00.01 Additional Codes RONI-7 Assessment Billing - RONI-7 Assessment Tool: RONI-7 Assessment 46558 ([id number]) PHQ-9 - 38300 - PHQ-9 Billing: Yes ([id number]) Assessment & Plan Assessment & Plan (1) Varicose veins of lower extremities without ulcer or inflammation: Code(s): I83.90 - Asymptomatic varicose veins of unspecified lower extremity Category: Medical (2) Impaired fasting glucose: Code(s): R73.01 - Impaired fasting glucose Category: Medical (3) Morbid obesity with BMI of 40.0-44.9, adult: Code(s): E66.01 - Morbid (severe) obesity due to excess calories; Z68.41 - Body mass index [BMI] 40.0-44.9, adult Category: Medical (4) Mixed dyslipidemia: Code(s): E78.2 - Mixed hyperlipidemia Category: Medical (5) Smoker unmotivated to quit: Code(s): F17.200 - Nicotine dependence, unspecified, uncomplicated Category: Social Hx (6) Annual visit for general adult medical examination with abnormal findings: Code(s): Z00.01 - Encounter for general adult medical examination with abnormal findings Orders: Orders Lipid Panel Today E55.9 - Vitamin D deficiency, unspecified, E66.01 - Morbid (severe) obesity due to excess calories, E78.2 - Mixed hyperlipidemia, F17.200 - Nicotine dependence, unspecified, uncomplicated, I83.90 - Asymptomatic varicose veins of unspecified lower extremity, R53.83 - Other fatigue, R73.01 - Impaired fasting glucose, Z00.01 - Encounter for general adult medical examination with abnormal findings, Z13.1 - Encounter for screening for diabetes mellitus, Z13.220 - Encounter for screening for lipoid disorders, Z68.41 - Body mass index [BMI] 40.0-44.9, adult Basic Metabolic Panel Fasting Today E55.9 - Vitamin D deficiency, unspecified, E66.01 - Morbid (severe) obesity due to excess calories, E78.2 - Mixed hyperlipidemia, F17.200 - Nicotine dependence, unspecified, uncomplicated, I83.90 - Asymptomatic varicose veins of unspecified lower extremity, R53.83 - Other fatigue, R73.01 - Impaired fasting glucose, Z00.01 - Encounter for general adult medical examination with abnormal findings, Z13.1 - Encounter for screening for diabetes mellitus, Z13.220 - Encounter for screening for lipoid disorders, Z68.41 - Body mass index [BMI] 40.0-44.9, adult Vitamin D 25-OH Total Today E55.9 - Vitamin D deficiency, unspecified, E66.01 - Morbid (severe) obesity due to excess calories, E78.2 - Mixed hyperlipidemia, F17.200 - Nicotine dependence, unspecified, uncomplicated, I83.90 - Asymptomatic varicose veins of unspecified lower extremity, R53.83 - Other fatigue, R73.01 - Impaired fasting glucose, Z00.01 - Encounter for general adult medical examination with abnormal findings, Z13.1 - Encounter for screening for diabetes mellitus, Z13.220 - Encounter for screening for lipoid disorders, Z68.41 - Body mass index [BMI] 40.0-44.9, adult Influenza [id number] Immunization Today Z23 - Encounter for immunization Complete Blood Count Auto Diff Today E55.9 - Vitamin D deficiency, unspecified, E66.01 - Morbid (severe) obesity due to excess calories, E78.2 - Mixed hyperlipidemia, F17.200 - Nicotine dependence, unspecified, uncomplicated, I83.90 - Asymptomatic varicose veins of unspecified lower extremity, R53.83 - Other fatigue, R73.01 - Impaired fasting glucose, Z00.01 - Encounter for general adult medical examination with abnormal findings, Z13.1 - Encounter for screening for diabetes mellitus, Z13.220 - Encounter for screening for lipoid disorders, Z68.41 - Body mass index [BMI] 40.0-44.9, adult
== END 2024-11-30 09:27 | disposition home or self-care (01) ==
LOC: HO.HMCC 08:10
PROVIDERS: PCP Internal Medicine; Visit Provider Internal Medicine
DX: Z23 Encounter for immunization (principal)

== ENCOUNTER → 2024-11-30 08:10 | Outpatient (BNVA) | payer OTHER, SELFPAY | PROVIDERS: PCP Internal Medicine; Visit Provider Internal Medicine | DX: Z00.00 Encounter for general adult medical examination without abnormal findings (principal); Z23 Encounter for immunization; I83.90 Asymptomatic varicose veins of unspecified lower extremity; R73.01 Impaired fasting glucose; E66.01 Morbid (severe) obesity due to excess calories; Z68.41 Body mass index [BMI] 40.0-44.9, adult; E78.2 Mixed hyperlipidemia; M85.852 Other specified disorders of bone density and structure, left thigh; E55.9 Vitamin D deficiency, unspecified; I10 Essential (primary) hypertension; F17.210 Nicotine dependence, cigarettes, uncomplicated; Z13.31 Encounter for screening for depression; Z13.39 Encounter for screening examination for other mental health and behavioral disorders | CPT/HCPCS: 90471; 90656; 96127 ==

== ENCOUNTER 2024-12-05 08:43 | Outpatient (REF) | payer OTHER, SELFPAY ==
--- OUTSIDE RECORDS SUMMARY | 2024-12-05 08:46 | XMS_ITS | Patient Health Record ---
[facility] Organization [facility] [place] Address [address] [place] [address] Care Team Providers Care Gaming Floor Supervisor Name Role Phone Raf CABRERA, Martha Kerns Primary Care Provider Un available Lizette Kline Unavailable [phone] Reason For Referral No Information Medications Medication [...] Date Coverage End Date [employer] [address] [place] [address] [id number] Tyesha Knapp Self - patient is the insured Medical (General) History Medical History History ICD Code Arthritis Back,Hip,and Knee pain Measles Mumps Chicken pox Surgical History Surgery Date(Month/Year)
[2024-12-05 11:26] LABS: MANUAL DIFF FLAG NO
[2024-12-05 11:35] LABS: Hematocrit 42.0 % (37.0-47.0); Hemoglobin 14.5 g/dl (12.0-16.0); Imm Gran Abs Auto 0.01 X10*3/uL (0.00-0.03); Imm Gran Pct Auto 0.2 % (0.0-0.4); Lymphocytes Absolute Auto 1.8 X10*3/uL (1.2-4.9); Mean Corpuscular HGB Conc 34.5 g/dl (31.0-35.0); Mean Corpuscular Hemoglobin 31.4 pg (27.0-33.0); Mean Corpuscular Volume 90.9 fL (80.0-98.0); NRBC Abs Auto 0.000 X10*3/uL (0.0-0.012); NRBC Pct Auto 0.0 /100WBC (0.0-0.2); Platelet Count 240 X10*3/uL (160-400); Red Blood Count 4.62 X10*6/uL (4.20-5.50); White Blood Count 5.9 X10*3/uL (4.8-10.8)
[2024-12-05 12:04] LABS: Anion Gap 12 (12-20); Blood Urea Nitrogen 17 mg/dL (9-16); Calcium 8.8 mg/dL (8.4-10.2); Carbon Dioxide 23 mmol/L (22-29); Chloride 107 mmol/L (96-108); Cholesterol 166 mg/dL (<200); Estimated Glomerular Filt Rate 56; HDL Cholesterol 34 mg/dL (>40); Potassium 4.3 mmol/L (3.3-5.1); Sodium 138 mmol/L (135-145); Triglycerides 91 mg/dL (<150)
== END 2024-12-05 08:44 | disposition home or self-care (01) ==
LOC: HO.HMGCLDS 08:43
PROVIDERS: PCP Internal Medicine; Visit Provider Internal Medicine
DX: Z00.01 Encounter for general adult medical examination with abnormal findings (principal); R53.83 Other fatigue; E55.9 Vitamin D deficiency, unspecified; E66.01 Morbid (severe) obesity due to excess calories; R73.01 Impaired fasting glucose; F17.200 Nicotine dependence, unspecified, uncomplicated; E78.2 Mixed hyperlipidemia; I83.90 Asymptomatic varicose veins of unspecified lower extremity; Z13.220 Encounter for screening for lipoid disorders; Z13.1 Encounter for screening for diabetes mellitus; Z68.41 Body mass index [BMI] 40.0-44.9, adult
CPT/HCPCS: 36415; 80048; 80061; 82306; 85025